=== PATIENT | female | born 1945 | race African-American/Black ===

== ENCOUNTER 2018-04-17 01:04 | Inpatient (IN) | payer OTHER ==
[~2018-04-17] VITALS: Ht 154.9 cm; Wt 85.7 kg
[2018-04-17] VITALS (9 sets, daily range): BP systolic 124–178; BP diastolic 54–99
--- NOTE | ~2018-04-17 | HC ---
[facility] [place] [address] CONSULTATION Name: ADI PALACIOS Room #: 362-P ADM IN M.R.#: [id number] Admission: 04/17/18 Attend Phys: Aishwarya Tripathi MD Discharge: Date of : 47 Report #: [id number] THIS REPORT FOR: //name// CC: Leonardo Valenzuela DATE OF SERVICE: 04/17/2018 REASON FOR CONSULTATION: I was asked to evaluate concerning infected lower extremity wound. HISTORY OF PRESENT ILLNESS: The patient is a 72-year-old with a progressive right pretibial leg wound infection. She noticed about 3-4 weeks ago onset of a small left pretibial wound. She has underlying venous stasis disease. She was in the hospital at [facility] after she fell and fractured her vertebra. Further details of this are not available. There was no surgical intervention. The wound to her left leg has progressively increased in size over the last several weeks. She was seen in the outpatient clinic for wound care and was hospitalized yesterday because of such progression. She has been on oral antibiotic therapy. Most recently cephalexin. She has underlying rheumatoid arthritis and she was treated with methotrexate and prednisone. She does not think she has had a previous lower extremity ultrasound. She is a nonsmoker. No prior issues with wounds to the left leg. No specific injury. Pain has increased, now on narcotics for pain. She has limited mobility due to her back and rheumatoid arthritis. She does have a history of peripheral neuropathy. REVIEW OF SYSTEMS: Denies any other skin lesions. No adenopathy. No headache or neurologic issues noted. Denies any psychiatric complaints. No history of diabetes or thyroid disease. No cardiopulmonary complaints. She does have a history of hypertension. Denies any GI or complaints. No vaginal discharge. Her joints, otherwise had been relatively stable for her. The 10-point review of systems is negative other than as described above. ALLERGIES: None. MEDICATIONS: As noted on her MAR, now on 10 mg of prednisone a day and methotrexate 20 mg a week. Vancomycin and Zosyn current antibiotic. PAST MEDICAL HISTORY: Rheumatoid arthritis, hypertension, hyperlipidemia, cholecystectomy, tonsillectomy. FAMILY HISTORY: Noncontributory. SOCIAL HISTORY: Nonsmoker, no significant alcohol intake. Resides with her family. [address] [address] CONSULTATION Name: ADI PALACIOS Room #: 362-P [facility] IN M.R.#: [id number] Admission: 04/17/18 Attend Phys: Aishwarya Tripathi MD Discharge: Date of : 47 Report #: [id number] PHYSICAL EXAMINATION: GENERAL: Well-developed, obese woman in no acute distress. EYES: No conjunctival injection or scleral icterus. MOUTH: Without lesion or mucositis. NECK: Supple, thick. No mass or thyromegaly. No palpable peripheral adenopathy. LUNGS: Clear, without adventitial sounds. HEART: Regular, without murmur, gallop or rub. ABDOMEN: Obese, soft, nontender, no hepatosplenomegaly or mass. EXTREMITIES: Left lower extremity with fairly large pretibial wound lower lateral area with some fibrinous debris at the base and serous drainage. Surrounding erythema and 2+ edema. Area of pretibial and surrounding tissues very tender to the touch. Pulses diminished in the feet bilaterally. 2+ pulse in the femoral and 1+ in the popliteal. Cranial nerves intact. Sensation diminished in the toes to the touch. SKIN: Without any other lesions or rash. Mood normal. LABORATORY STUDIES: Sodium 139, potassium 4.9, bicarbonate 27, creatinine 1.3, alkaline phosphatase 123. Liver function tests normal. Hemoglobin 11, platelet count 212,000, white count 12.7. Lactate 1.6. Blood cultures are pending. Outside biopsy and cultures are pending. IMPRESSION: 1. Chronic progressive wound, left lower extremity in a woman with underlying rheumatoid arthritis, immunosuppressed on prednisone and methotrexate. Suspecting vascular, ischemic wound. Other possibility would be autoimmune vasculitic wound. Secondary infection likely scenario. 2. Obesity. 3. Hypertension. 4. Venous stasis disease. RECOMMENDATIONS: We will continue IV antibiotic therapy pending culture results. Check arterial studies. Await biopsy and culture results performed in the outpatient clinic. Mild compression and elevation to continue. Also, check laboratory studies including sedimentation rate. <ELECTRONICALLY SIGNED> By: Catracho Connelly MD 04/18/18 1339 1313 1756 Catracho Connelly MD /nt
--- NOTE | ~2018-04-17 | EEG ---
[facility] [place] [address] ELECTROENCEPHALOGRAM Name: ADI PALACIOS Room #: 349-I [facility] IN M.R.#: [id number] Admission: 04/17/18 Attend Phys: Aishwarya Tripathi MD Discharge: Date of : 46 Report #: [id number] THIS REPORT FOR: //name// CC: Leonardo Tripathi DATE OF SERVICE: 04/26/2018 This patient is being evaluated for altered mental status. EEG was done by placing the electrodes by standard 10-20 system of electrode placement. Both referential and sequential montages were used for recording. Background activity is about 9 Hz and 30 microvolts. The patient went to sleep. That is associated with bilaterally symmetrical sleep spindle and vertex sharp waves. Photic stimulation was unremarkable. Throughout the record, no active epileptiform activity was noticed. IMPRESSION: EEG is intermixed with some theta range slowing. That is a nonspecific abnormality, which can occur with encephalopathy, effect of psychotropic medication, dementia, etc. Clinical correlation is recommended. <ELECTRONICALLY SIGNED> By: Florencio Arvizu MD 05/02/18 0948 1631 1800 Florencio Arvizu MD /nt
--- NOTE | ~2018-04-17 | 2DMMODE ---
[facility] [address] [address] 2 D/M-MODE ECHOCARDIOGRAM Name: ADI PALACIOS Room #: 361-P ADM IN .R.#: [id number] Admission: 04/17/18 Attend Phys: Aishwarya Tripathi MD Discharge: Date of : 47 Date of Service: 04/25/18 1554 Report #: [id number] THIS REPORT FOR: //name// APPROVED REPORT Study performed: 04/25/2018 14:51:49 EXAM: Comprehensive 2D, Doppler, and color-flow Echocardiogram Patient Location: Bedside Room #: 361 Status: routine BSA: 1.81 HR: 93 bpm BP: 187/115 mmHg Rhythm: NSR Other Information Study Quality: Adequate Technically limited study due to body habitus, inability to position patient. Indications History of leg edema, CHF, SOB. 2D Dimensions RVDd: 28.68 mm IVSd: 12.00 (7-11mm) LVOT Diam: 19.40 (18-24mm) LVDd: 38.00 mm PWd: 12.00 (7-11mm) Ascending Ao: 29.47 (22-36mm) LVDs: 26.38 (25-40mm) Aortic Root: 33.22 mm Volumes Left Atrial Volume (Systole) Single Plane 4CH: 42.86 mL Single Plane 2CH: 47.92 mL LA ESV Index: 27.00 mL/m2 Aortic Valve AoV Peak José Miguel.: 1.57 m/s AO Peak Gr.: 9.86 mmHg LVOT Max P.19 mmHg LVOT Max V: 1.34 m/s NARENDRA Vmax: 2.52 cm2 Mitral Valve E/A Ratio: 0.6 [facility] [place] [address] 2 D/M-MODE ECHOCARDIOGRAM Name: ADI PALACIOS Room #: 361-P [facility] IN ..#: [id number] Admission: 04/17/18 Attend Phys: Aishwarya Tripathi MD Discharge: Date of : 47 Date of Service: 04/25/18 1554 Report #: [id number] MV Decel. Time: 233.98 ms MV E Max José Miguel.: 0.67 m/s MV A José Miguel.: 1.11 m/s MV PHT: 67.86 ms IVRT: 69.20 ms Pulmonary Valve PV Peak José Miguel.: 1.50 m/s PV Peak Gr.: 8.96 mmHg Tricuspid Valve TR Peak José Miguel.: 3.08 m/s RAP Estimate: 5.00 mmHg TR Peak Gr.: 38.02 mmHg PA Pressure: 43.00 mmHg Left Ventricle The left ventricle is normal size. There is normal LV segmental wall motion. Mild concentric left ventricular hypertrophy. Left ventricular systolic function is normal. LVEF is 65-70%. Mild diastolic dysfunction is present (impaired relaxation pattern). Right Ventricle The right ventricle is normal size. The right ventricular systolic function is normal. Atria The left atrium size is normal. The right atrium size is normal. Aortic Valve The aortic valve is normal in structure. No aortic regurgitation is present. There is no aortic valvular stenosis. Mitral Valve The mitral valve is normal in structure. No mitral regurgitation. Tricuspid Valve The tricuspid valve is normal in structure. Mild tricuspid regurgitation. Estimated PAP is 40-45mmHg. Pulmonic Valve Pulmonic valve is not well visualized. There is no pulmonic valvular stenosis. Trace pulmonic regurgitation. [facility] [address] [place] [address] 2 D/M-MODE ECHOCARDIOGRAM Name: ADI PALACIOS Room #: 361-P ADM IN .R.#: [id number] Admission: 04/17/18 Attend Phys: Aishwarya Tripathi MD Discharge: Date of : 47 Date of Service: 04/25/18 1554 Report #: [id number] The aortic root is normal in size. The ascending aorta is normal in size. IVC is normal in size and collapses >50% with inspiration. Pericardium There is no pericardial effusion. <Conclusion> LVEF is 65-70%. There is normal LV segmental wall motion. LVEF is 65-70%. Mild diastolic dysfunction The aortic valve is normal in structure. No aortic regurgitation or stenosis The mitral valve is normal in structure. No mitral regurgitation. Mild tricuspid regurgitation. Estimated pulmonary artery pressure of 40-45mmHg. There is no pericardial effusion. <ELECTRONICALLY SIGNED> By: Yasir Petit MD, FACC 04/25/18 1554 53 155 Yasir Petit MD, FACC /INF
--- NOTE | ~2018-04-17 | HC ---
[facility] [place] [address] CONSULTATION Name: ADI PALACIOS Room #: 349-I ADM IN ..#: [id number] Admission: 04/17/18 Attend Phys: Aishwarya Tripathi MD Discharge: Date of : 46 Report #: [id number] THIS REPORT FOR: //name// CC: Leonardo Tripathi DATE OF SERVICE: 04/27/2018 HISTORY OF PRESENT ILLNESS: This is a 72-year-old -German female who has been dealing with the left lower extremity chronic wound. There is a question as to whether this was caused by a spider bite. She developed sepsis, underwent excisional debridement of the left anterior wound on 04/22/2018. She has been on IV antibiotics. She is being monitored regarding acute renal insufficiency. She has a prior history of rheumatoid arthritis on prednisone and methotrexate. She had an episode of facial droop thought to be either due to encephalopathy or TIA. Neurology saw her. MRI did not show any evidence of a stroke. She is to have an EEG. We are seeing her in rehabilitation medicine consultation. PAST MEDICAL HISTORY: Includes rheumatoid arthritis as noted above. She has history of hypertension, acute renal insufficiency and peripheral neuropathy. HABITS: Include tobacco with cigarette usage. She smoked for 40 years, 2 packs per day, quit in 2001. No history of alcohol abuse. SOCIAL HISTORY: She lives in a house with her daughter and her sister. She used a cane premorbidly. She notes her daughter works outside the home. She was receiving some home healthcare previous to admission. REVIEW OF SYSTEMS: Did not offer any current complaints of chest pain, shortness of breath and abdominal discomfort. PHYSICAL EXAMINATION: GENERAL: This is a 72-year-old overweight, pleasant, -German female in no obvious distress. She is currently on nasal prong O2, 2 liters. HEENT: Facies appeared symmetric. EXTREMITIES: Functional range of motion of both upper extremities with strength grade 4-/5. DTRs are trace to 1. Lower extremities, no focal calf swelling. Left anterior leg is dressed. She can dorsiflex of left ankle. Strength is a grade 4-/5, right lower extremity, no focal calf swelling, functional range of motion with strength grade 4-/5. DTRs are trace to 1. Sit to stand was min assist. Gait was 10 feet min assist with the rollator walker. ASSESSMENT: This is a 72-year-old female with the following problem list: 1. Right lower [place] [address] CONSULTATION Name: ADI PALACIOS Room #: 349-I [facility] IN [facility]#: [id number] Admission: 04/17/18 Attend Phys: Aishwarya Tripathi MD Discharge: Date of : 46 Report #: [id number] 2. Sepsis. 3. Acute renal insufficiency. 4. Rheumatoid arthritis. 5. Hypertension. 6. Episode of transient ischemic attack versus encephalopathy. Appears to be improved/back to her prior baseline. PLAN: The patient would like to return directly home with home health care. We will need to see how she does as far as her functional abilities in therapies on basic transfers and mobility and ADLs. Although, she does live with her daughter. Daughter does work and the patient will need to be able to take care of some of her basic needs herself. We will be glad to follow along with you regarding her rehab therapy needs. <ELECTRONICALLY SIGNED> By: River Almanza MD 05/06/18 1220 0920 1008 River Almanza MD /nt
--- NOTE | ~2018-04-17 | EKG ---
[address] [address] ELECTROCARDIOGRAM REPORT Name: ADI PALACIOS Room #: 349-I ADM IN M.R.#: [id number] Admission: 04/17/18 Attend Phys: Aishwarya Tripathi MD Discharge: Date of : 47 Report #: [id number] THIS REPORT FOR: //name// [facility] Test Date: 2018-04-26 Test Time: 08:55:55 Pat Name: ADI PALACIOS Department: Room: 349 I Gender: F Patient Care Technician: ENRIKE : 1945 Requested By: Germain Lopes Order Number: [id number] MD: Yasir Petit Measurements Intervals [place] Rate: 102 P: 48 PA: 119 QRS: 33 QRSD: 81 T: 72 QT: 355 QTc: 463 Interpretive Statements Sinus tachycardia Atrial premature complexes Inferior infarct, old Compared to ECG 06/09/2015 16:14:13 Atrial premature complex(es) now present Electronically Signed On 04-26-2018 16:35:18 CDT by Yasir Petit [email or web address] <ELECTRONICALLY SIGNED> By: Yasir Petit MD, [facility] 04/26/18 1635 4 Yasir Petit MD, [facility] /EPI
--- NOTE | ~2018-04-17 | O ---
[facility] [place] [address] OPERATIVE REPORT Name: ADI PALACIOS Room #: 349-I ADM IN .R.#: [id number] Admission: 04/17/18 Attend Phys: Aishwarya Tripathi MD Discharge: Date of : 46 Report #: [id number] THIS REPORT FOR: //name// CC: Leonardo Tripathi DATE OF SERVICE: 04/22/2018 SURGEON: Seth Muñiz MD [place] ATTENDANT: None. PREOPERATIVE DIAGNOSES: 1. 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 2. Acute kidney injury. 3. Hypertension. 4. Rheumatoid arthritis. POSTOPERATIVE DIAGNOSES: 1. 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 2. Acute kidney injury. 3. Hypertension. 4. Rheumatoid arthritis. PROCEDURE: 1. Excisional debridement of chronic left anterior lateral lower extremity wound including skin and subcutaneous tissue (12 cm2 starting area; 27.3 cm2 ending area) including biopsy of normal adjacent tissue. 2. Misonix ultrasound debridement of left anterolateral lower extremity wound of 27.3 cm2. ANESTHESIA: General endotracheal anesthesia and local anesthetic. ESTIMATED BLOOD LOSS: 10 mL. SPECIMEN: Left anterior lateral lower extremity skin and subcutaneous tissue as well as surrounding normal tissue. COMPLICATIONS: None appreciated. INDICATION FOR PROCEDURE: This is a 72-year-old female patient being followed in the Wound Care Clinic for a chronic left lower extremity ulceration. She has developed increasing pain and drainage, which prompted her admission to the hospital. Her ulcer does not appear to be from pressure necrosis, but rather from a possible vascular issue. She does have underlying rheumatoid arthritis and is being treated with methotrexate and prednisone. She denies trauma to the [facility] [address] [place] [address] OPERATIVE REPORT Name: ADI PALACIOS Room #: 349-I ADM IN .R.#: [id number] Admission: 04/17/18 Attend Phys: Aishwarya Tripathi MD Discharge: Date of : 46 Report #: [id number]. She presents now for debridement as well as biopsy of relatively normal surrounding tissue. OPERATIVE FINDINGS: The wound was 4 x 3 cm prior to debridement and 6.5 x 4.2 cm post-debridement for a total area of 27.3 cm2. The underlying tissue had adequate blood supply with a good oozing of tissue after the incision. No other significant pathology was seen. DESCRIPTION OF PROCEDURE IN DETAIL: After the risks, benefits and expectations of the operation were discussed with the patient and her family, informed consent was obtained. The patient was identified in the preoperative holding area. She has been receiving scheduled antibiotics. She was taken to the operating room and she was placed in the supine position. SCDs were placed on the patient's right lower extremity. The left lower extremity was prepped and draped in the standard sterile fashion after sedating and intubating the patient. After prepping and draping the left lower extremity, a time-out was performed to identify the correct patient and procedure. A sharp #10 blade scalpel was used to excise the necrotic tissue overlying the ulcer and including the ulcer bed. Debridement was carried down to healthy bleeding tissue. Bleeding points were made hemostatic with electrocautery. Cultures were taken to be sent for aerobes, anaerobes and fungus. An additional area of tissue was taken from the anterior lateral aspect of the wound, approximately quarter shaped. A sharp #10 blade scalpel was used to make an incision through the skin and subcutaneous tissue. Electrocautery was used to dissect through subcutaneous tissue and lift the tissue off of the overlying fascia. Bleeding points were made hemostatic with electrocautery. YumZingonix ultrasonic debridement device was then used to cause cavitation of the cells and swelling and bursting of any bacterial cell rogers present. This would help to decrease the bacterial load. Bleeding points were again made hemostatic with electrocautery. The wound was then packed with wet-to-dry normal saline dressings. The wound was dressed with 4 x 4s, an ABD pad and tape. The patient tolerated the procedure well. She was awakened, extubated, and taken to the recovery room in stable condition with no apparent intraoperative complications. <ELECTRONICALLY SIGNED> By: Seth Muñiz MD, FACS 04/28/18 0818 1416 1518 Seth Muñiz MD, FACS /nt
--- NOTE | ~2018-04-17 | HC ---
[facility] [place] [address] CONSULTATION Name: ADI PALACIOS Room #: 362-P ADM IN M.R.#: [id number] Admission: 04/17/18 Attend Phys: Aishwarya Tripathi MD Discharge: Date of : 46 Report #: [id number] THIS REPORT FOR: //name// CC: Leonardo Tripathi DATE OF SERVICE: 04/18/2018 CHIEF COMPLAINT: Ulceration of the left leg and IV infiltration site, left antecubital fossa. HISTORY OF PRESENT ILLNESS: This is a 72-year-old female patient who has been seen once in the wound clinic by my partner, Dr. Wakefield a couple of weeks ago for an ulceration on her left leg. She apparently developed increasing pain and some drainage and was admitted to the hospital. She has what appears to be a venous type ulceration and it has been slow to respond. She has underlying rheumatoid arthritis and being treated with methotrexate and prednisone. She denies any specific trauma to the leg and it is uncertain as to how it developed. MEDICATIONS: Reviewed on her MAR, include vancomycin, Zosyn, methotrexate and prednisone. PAST MEDICAL HISTORY: Positive for hypertension, hyperlipidemia, rheumatoid arthritis, cholecystectomy and tonsillectomy. FAMILY HISTORY: Noncontributory. SOCIAL HISTORY: The patient is a nonsmoker with no significant alcohol intake. ALLERGIES: None. REVIEW OF SYSTEMS: CONSTITUTIONAL: The patient denies fever, chills or weight loss. NEUROLOGICAL: The patient denies focal weakness. ENT: The patient denies earache, nasal drainage or sore throat. CARDIOVASCULAR: The patient chest pain, palpitations or diaphoresis. PULMONARY: The patient denies cough or shortness of breath. GASTROINTESTINAL: The patient denies nausea, vomiting, diarrhea, or abdominal pain. ORTHOPEDIC: The patient complains of pain, swelling and blistering to her left antecubital fossa as well as ulceration and drainage to her left leg. Other 14-point review of systems is otherwise negative. PHYSICAL EXAMINATION: VITAL SIGNS: At this time includes pulse rate 110, respiratory rate of 18, [facility] [address] [place] [address] CONSULTATION Name: ADI PALACIOS Room #: 362-P ADM IN M.R.#: [id number] Admission: 04/17/18 Attend Phys: Aishwarya Tripathi MD Discharge: Date of : 46 Report #: [id number] blood pressure 168/68, temperature 98.7. GENERAL: This is a chronically ill-appearing female patient who appears to be in no distress. HEENT: Head normocephalic. Nose and throat clear. NECK: Supple. LUNGS: Clear. HEART: Regular. ABDOMEN: Soft, nontender. EXTREMITIES: Demonstrate diminished, but palpable distal pulses. She has 1-2+ edema of her lower extremities. There is a circular ulceration on the lateral aspect of the left leg. It is mostly covered with yellow fibrinous material with a little bit of granulation tissue present. Left antecubital fossa demonstrates multiple bullae that are superficial. These are easily ruptured and the areas that are open do appear to be clean without evidence of infection. There is some surrounding edema to the area and it is mildly tender. CLINICAL IMPRESSION: 1. Ulceration of the left lower extremity, likely on the basis of venous insufficiency. One would also consider the possibility of pyoderma gangrenosum with her underlying rheumatological disorder. 2. Intravenous infiltration site with multiple superficial bullae of the left antecubital fossa. 3. Rheumatoid arthritis. 4. Hypertension. 5. Obesity. RECOMMENDATIONS: At this point in time, we recommend continued intravenous antibiotic therapy, pending cultures. Arterial Dopplers have been obtained, which demonstrate no significant inflow disease. I think she could probably handle some compression. We may want to consider some debridement, although realize that should this be vasculitic and/or related to pyoderma gangrenosum that pathergy would be a consideration. We will start with topical Medihoney to the affected area on the left leg. We will recommend nonadherent dressing to the left antecubital fossa. I think we will try some gentle compression, elevation of the leg for edema control. I appreciate being asked to see her in consultation. <ELECTRONICALLY SIGNED> By: Jordan Stark MD 04/19/18 1008 13 2356 Jordan Stark MD /nt
--- NOTE | ~2018-04-17 | HC ---
[facility] [place] [address] CONSULTATION Name: ADI PALACIOS Room #: 349-I ADM IN .R.#: [id number] Admission: 04/17/18 Attend Phys: Aishwarya Tripathi MD Discharge: Date of : 47 Report #: [id number] THIS REPORT FOR: //name// CC: Leonardo Tripathi DATE OF SERVICE: 04/26/2018 HISTORY OF PRESENT ILLNESS: This is a 72-year-old female patient who was evaluated by me for altered mental status. This patient is a poor historian. Her sister is there with her, but she is also a poor historian. I reviewed the records on this patient. It looks like that at one time the right facial droop was noticed. The patient indicated that she was confused yesterday, but she is doing better now. The symptoms came spontaneously and then she became better. She has no headache associated with this. REVIEW OF SYSTEMS: Positive for multiple things. Those things include left lower wound infection and she indicates that she is still having pain there. It was like that when she came in. She had seen wound care doctor. She takes multiple medications. She is on the medication for sepsis. She has wound cellulitis. She has renal problems. She has rheumatoid arthritis. She has history of hypertension. A 14-point review of system was carried out and that was positive for above-described problems. She indicated that she has some trouble with her eyes. She indicated some complicated history in that regard. That problem has been chronic. She denies any ENT complaints. She does not have any significant breathing difficulty or any chest symptoms. She does have rheumatoid arthritis in the baseline. She has renal problems in the baseline. Her GFR is 41. She does have sepsis. She has cellulitis. She denies any new hematological, psychiatric, throat, allergic symptoms. PAST MEDICAL HISTORY: Positive for rheumatoid arthritis. FAMILY HISTORY: Negative for early age stroke. SOCIAL HISTORY: She has family. I talked to them, but the history is poor in this patient. She denies the use of alcohol. PHYSICAL EXAMINATION: This patient's examination indicates she is alert and responsive. She is slightly sleepy. She wakes up easily. She is oriented. She believes her fund of knowledge and memory is at her baseline. Cranial nerve examination 2-12 indicates that it is difficult to tell about extraocular movements. I do not know what is her baseline and what is superimposed on that. Neuromuscular examination as checked for sensory, motor reflex and tone is at her baseline allowing for cellulitis. No meningeal sign. I could not look at [facility] [address] [place] [address] CONSULTATION Name: ADI PALACIOS Room #: 349-I ADM IN .R.#: [id number] Admission: 04/17/18 Attend Phys: Aishwarya Tripathi MD Discharge: Date of : 47 Report #: [id number] the fundus very well. There is no cerebellar signs in upper extremities. She is moderately built individual. She is not having any dysmorphic features of eyes, ears and face. Her vision and hearing looks adequate. Pulses are difficult to feel. She does have some swelling because of her cellulitis. No jaundice. Cardiac examination is unremarkable. No respiratory difficulty or rhonchi on either side. Blood pressure is 150/72, respiration is 20, pulse is 82, temperature is 97.1. LABORATORY DATA: Indicates white count of 9.9. GFR is 41. She did have an MRI of the brain and MRA of the head. I reviewed that and it appears mostly unremarkable. She is on aspirin and she is on statin. IMPRESSION: The patient's symptoms were secondary to either encephalopathy or transient ischemic attack. She is better. I will check an EEG. If EEG is unremarkable or shows only encephalopathy, I do not believe much needs to be done. Even if it was TIA, she is already on aspirin and statin and nothing much needs to be done in this regard. She does need to follow up with her finish mender after she recuperates from present situation. RECOMMENDATION: I discussed all of it with the patient and the family. They understand that. They want to follow the above approach. I will look at the EEG and follow up tomorrow. We will do further workup in case she continues to have symptoms. If she does not have any further symptoms, I think we can just observe her. Thank you very much for this referral and if you have any question, please feel free to contact me. <ELECTRONICALLY SIGNED> By: Florenico Arvizu MD 05/02/18 0947 1504 20 Florencio Arvizu MD /nt
--- NOTE | ~2018-04-17 | PATH ---
[facility] [address] [address] PATHOLOGY RPT PROCEDURE Name: RUDY PALACIOS Room #: 349-I ADM IN M.R.#: [id number] Admission: 04/17/18 Date of : 47 Discharge: Report #: [id number] Path Case #: [id number] [facility] Accession Number: [id number] . 01 Material submitted: . PART A: LEFT LOWER LEG TISSUE PART B: LEFT LOWER LEG MARGINAL TISSUE . 01 Clinician provided ICD-10: L03.116 A41.9 . 01 Clinical history: . Ulcer left lower leg . 02 Diagnosis: A. Left lower leg tissue, debridement: - Fragments of gangrenous necrosis, dystrophic calcification and fibrinoid degeneration, compatible with debridement tissue. . B. Skin and subcutaneous tissue, left lower leg marginal tissue, debridement and irrigation: - Moderate to marked acute inflammation associated with fibrinoid degeneration, compatible with debridement tissue. (IUV:pit 04/25/2018) QTP/04/25/2018 . 02 Electronically signed: . Belinda Fischer MD, Pathologist NPI- [id number] . 01 Gross description: . A.The specimen is received in formalin, labeled "Rudy Palacois, left lower leg tissue", are several fragments of hemorrhagic/necrotic skin and underlying soft tissue measuring 2.6 x 1.7 x 0.6 cm in aggregate. The specimen is entirely submitted in A1. . B.The specimen is received in formalin, labeled "Rudy Palacios, left lower leg marginal tissue", is an irregular fragment of gardiner brown wrinkled skin measuring 1.9 x 1.7 excised to a depth of 0.5 cm. The specimen is inked black, serially sectioned and entirely submitted in B1-B2. (SWS; 04/22/2018) [facility] . 02 Pathologist provided ICD-10: I96, L08.9 . [address] [place] [address] PATHOLOGY RPT PROCEDURE Name: RUDY PALACIOS Room #: 349-I ADM IN M.R.#: [id number] Admission: 04/17/18 Date of : 47 Discharge: Report #: [id number] Path Case #: [id number] [facility] . [id number], [id number] Specimen Comment: A courtesy copy of this report has been sent to Specimen Comment: [phone], , . Specimen Comment: Report sent to ,DR HILTON / DR MCCARTY Performed at: [address] [facility], [place], [place] [id number] MD Laron Knapp MD Phone: [phone] Performed at: [address] [facility], [place], [place] [id number] MD Belinda Fischer MD Phone: [phone]
--- NOTE | ~2018-04-17 | EKG ---
[address] [address] ELECTROCARDIOGRAM REPORT Name: SUZANNEADI Room #: 349-I ADM IN M.R.#: [id number] Admission: 04/17/18 Attend Phys: Aishwarya Tripathi MD Discharge: Date of : 47 Report #: [id number] THIS REPORT FOR: //name// [facility] Test Date: 2018-04-25 Test Time: 21:23:34 Pat Name: ADI PALACIOS Department: Room: 349 Gender: F Hands Assembler: Tarsha MELVIN : 1945 Requested By: Albert Pressley Order Number: [id number] MD: Patrice Steele Measurements Intervals [place] Rate: 96 P: 58 [place]: 128 QRS: 50 QRSD: 77 T: 97 QT: 354 QTc: 448 Interpretive Statements Sinus rhythm Nonspecific T abnormalities, lateral leads Compared to ECG 06/09/2015 16:14:13 T-wave abnormality now present Myocardial infarct finding no longer present ST (T wave) deviation no longer present Electronically Signed On 04-26-2018 9:54:39 CDT by Patrice Steele [email or web address] <ELECTRONICALLY SIGNED> By: Patrice Steele MD 04/26/18 0954 22 22 Patrice Steele MD /EPI
[~2018-04-17 01:04] MED LIST: NORCO 5-325 TA1 EACH PO
[2018-04-17] MEDS ORDERED: LOPRESSOR25 PO (02:50)
[2018-04-17] MEDS ORDERED: ASPIR 8181 MG PO (02:50)
[2018-04-17 02:52] LABS: ABSOLUTE NEUTROPHILS 9.9 thou/uL (1.4-8.2); BASOPHILS 0.9 % (0.0-2.0); EOSINOPHILS 0.4 % (0.0-3.0); HEMATOCRIT 33.4 % (37.0-47.0); LYMPHOCYTES 12.8 % (24.0-44.0); MCH 31.2 pg (26.0-34.0); MCHC 32.8 g/dL (28.0-37.0); MCV 95.1 fL (80.0-100.0); PLATELET COUNT 212 thou/uL (150-400); POLYS 77.9 % (36.0-66.0); RBC 3.52 mil/uL (4.20-5.00); RDW 17.6 % (10.5-14.5); WBC 12.7 thou/uL (4.0-11.0)
[2018-04-17 03:00] LABS: CALCIUM 9.5 mg/dL (8.5-10.1); CREATININE 1.3 mg/dL (0.6-1.0)
[2018-04-17 03:06] LABS: ALBUMIN 2.8 g/dL (3.4-5.0); TOTAL BILIRUBIN 0.5 mg/dL (<0.1-1.0); TOTAL PROTEIN 7.1 g/dL (6.4-8.2)
[2018-04-17 03:07] LABS: POTASSIUM 4.9 mmol/L (3.5-5.1)
[2018-04-17] MEDS ORDERED: METHOTREXATE 22.5 MG PO (03:21)
[2018-04-17] MEDS ORDERED: PREDNISONE 10 M10 MG PO (03:21)
[2018-04-17] MEDS ORDERED: LASIX 20 MG TAB20 MG PO (03:22)
[2018-04-17] MEDS ORDERED: NORVASC5 MG PO (03:22)
[2018-04-17] MEDS ORDERED: ALLOPURINOL 10100 M1 PO (03:23)
[2018-04-17] MEDS ORDERED: OYSCO-500500 MG PO (03:23)
[2018-04-17] MEDS ORDERED: LISINOPRIL5 MG PO (03:24)
[2018-04-17] MEDS ORDERED: SENNA8.6 MG PO (03:25)
[2018-04-17] MEDS ORDERED: VITAMIN D3400 UNIT PO (03:25)
[2018-04-17] MEDS ORDERED: PERCOCET PO (03:26)
[2018-04-18 00:29] LABS: URINE BILIRUBIN NEGATIVE (Negative); URINE BLOOD NEGATIVE (Negative); URINE CLARITY CLEAR; URINE COLOR YELLOW; URINE GLUCOSE-RANDOM* 2+ (Negative); URINE KETONES NEGATIVE (Negative); URINE LEUKOCYTES-REFLEX NEGATIVE (Negative); URINE NITRITE-REFLEX NEGATIVE (Negative); URINE PROTEIN (DIPSTICK) NEGATIVE (Negative); URINE UROBILINOGEN 0.2 E.U./dl (0.2-1.0)
[2018-04-18 03:33] VITALS: BP 158/84
[2018-04-18 05:44] LABS: BASOPHILS 0.3 % (0.0-2.0); HEMATOCRIT 28.6 % (37.0-47.0); HEMOGLOBIN 9.5 gm/dL (12.0-15.0); LYMPHOCYTES 5.7 % (24.0-44.0); MCH 31.7 pg (26.0-34.0); MCHC 33.3 g/dL (28.0-37.0); MCV 95.4 fL (80.0-100.0); MONOCYTES 7.8 % (1.0-8.0); PLATELET COUNT 173 thou/uL (150-400); POLYS 85.2 % (36.0-66.0); RDW 17.7 % (10.5-14.5); WBC 12.9 thou/uL (4.0-11.0)
[2018-04-18 05:54] LABS: CALCIUM 8.7 mg/dL (8.5-10.1); CREATININE 1.2 mg/dL (0.6-1.0); POTASSIUM 3.6 mmol/L (3.5-5.1)
[2018-04-18 07:47] VITALS: BP 152/79
[2018-04-18] MEDS ORDERED: ATORVASTATIN CA40 MG PO (10:45)
[2018-04-18 11:24] VITALS: BP 153/89
[2018-04-18 16:15] VITALS: BP 163/83
[2018-04-18 19:32] VITALS: BP 168/68
[2018-04-19 03:45] VITALS: BP 148/82
[2018-04-19 08:09] VITALS: BP 146/77
[2018-04-19 15:42] VITALS: BP 143/70
[2018-04-19 20:10] VITALS: BP 149/90
[2018-04-20 04:30] VITALS: BP 146/66
[2018-04-20 06:09] LABS: CALCIUM 9.9 mg/dL (8.5-10.1); CREATININE 1.3 mg/dL (0.6-1.0); MAGNESIUM 1.9 mg/dL (1.8-2.4); POTASSIUM 3.4 mmol/L (3.5-5.1)
[2018-04-20 06:11] LABS: HEMATOCRIT 28.7 % (37.0-47.0); HEMOGLOBIN 9.6 gm/dL (12.0-15.0); MCH 31.4 pg (26.0-34.0); MCHC 33.4 g/dL (28.0-37.0); MCV 94.2 fL (80.0-100.0); PLATELET COUNT 180 thou/uL (150-400); RBC 3.05 mil/uL (4.20-5.00); RDW 17.7 % (10.5-14.5); WBC 11.7 thou/uL (4.0-11.0)
[2018-04-20 07:39] VITALS: BP 143/67
[2018-04-20 08:20] LABS: ABSOLUTE NEUTROPHILS 9.8 thou/uL (1.4-8.2); ANISOCYTOSIS 1+
[2018-04-20 11:36] VITALS: BP 121/55
[2018-04-20] MEDS ORDERED: NORCO 5-325 TA1 EACH PO (12:30)
[2018-04-20] MEDS ORDERED: NEURONTIN 300300 M1 PO (12:32)
[2018-04-20 16:51] VITALS: BP 140/79
[2018-04-20 19:30] VITALS: BP 146/87
[2018-04-21 04:45] VITALS: BP 152/71
[2018-04-21 06:10] LABS: HEMATOCRIT 28.6 % (37.0-47.0); HEMOGLOBIN 9.7 gm/dL (12.0-15.0); MCH 32.4 pg (26.0-34.0); MCHC 34.1 g/dL (28.0-37.0); PLATELET COUNT 188 thou/uL (150-400); RBC 3.01 mil/uL (4.20-5.00); RDW 17.5 % (10.5-14.5); WBC 9.7 thou/uL (4.0-11.0)
[2018-04-21 06:17] LABS: CALCIUM 9.4 mg/dL (8.5-10.1); CREATININE 1.3 mg/dL (0.6-1.0)
[2018-04-21 06:49] LABS: ABSOLUTE NEUTROPHILS 7.4 thou/uL (1.4-8.2); POLYCHROMASIA 1+
[2018-04-21 06:50] LABS: OVALOCYTES 1+
[2018-04-21 07:37] VITALS: BP 146/72
[2018-04-21 12:11] VITALS: BP 126/69
[2018-04-21 19:53] VITALS: BP 168/80
[2018-04-22 03:45] VITALS: BP 153/89
[2018-04-22 06:37] LABS: HEMATOCRIT 28.7 % (37.0-47.0); HEMOGLOBIN 9.4 gm/dL (12.0-15.0); MCH 31.6 pg (26.0-34.0); MCHC 32.9 g/dL (28.0-37.0); MCV 96.2 fL (80.0-100.0); PLATELET COUNT 206 thou/uL (150-400); RBC 2.98 mil/uL (4.20-5.00); WBC 9.2 thou/uL (4.0-11.0)
[2018-04-22 06:50] LABS: CALCIUM 9.4 mg/dL (8.5-10.1); CREATININE 1.4 mg/dL (0.6-1.0); POTASSIUM 4.1 mmol/L (3.5-5.1)
[2018-04-22 07:50] VITALS: BP 153/64
[2018-04-22 08:17] LABS: ABSOLUTE NEUTROPHILS 7.1 thou/uL (1.4-8.2)
[2018-04-22 09:48] VITALS: BP 175/91
[2018-04-22 13:56] LABS: MAGNESIUM 1.7 mg/dL (1.8-2.4)
[2018-04-22 16:07] VITALS: BP 143/87
[2018-04-22 19:49] VITALS: BP 138/99
[2018-04-23 00:52] VITALS: BP 151/85
[2018-04-23 03:55] VITALS: BP 152/86
[2018-04-23 06:04] LABS: HEMATOCRIT 28.6 % (37.0-47.0); HEMOGLOBIN 9.5 gm/dL (12.0-15.0); MCH 31.9 pg (26.0-34.0); MCHC 33.2 g/dL (28.0-37.0); MCV 96.2 fL (80.0-100.0); PLATELET COUNT 202 thou/uL (150-400); RBC 2.97 mil/uL (4.20-5.00); RDW 17.7 % (10.5-14.5); WBC 9.5 thou/uL (4.0-11.0)
[2018-04-23 06:14] LABS: CALCIUM 9.5 mg/dL (8.5-10.1); CREATININE 1.4 mg/dL (0.6-1.0); POTASSIUM 4.3 mmol/L (3.5-5.1)
[2018-04-23 08:26] LABS: ANISOCYTOSIS 1+; METAMYELOCYTES 1 %; MYELOCYTES 1 %; POLYCHROMASIA OCCASIONAL
[2018-04-23 08:27] LABS: ABSOLUTE NEUTROPHILS 7.6 thou/uL (1.4-8.2); ATYPICAL LYMPHS 1 %
[2018-04-23 08:40] VITALS: BP 121/92
[2018-04-23 11:40] VITALS: BP 115/89
[2018-04-23 16:45] VITALS: BP 133/84; BP 139/94
[2018-04-23 19:05] VITALS: BP 128/77
[2018-04-24 04:00] VITALS: BP 155/84
[2018-04-24 08:06] VITALS: BP 156/73
[2018-04-24 15:14] VITALS: BP 161/86
[2018-04-24 19:36] VITALS: BP 156/82
[2018-04-25] VITALS (8 sets, daily range): BP systolic 141–187; BP diastolic 78–115
[2018-04-25 06:21] LABS: ABSOLUTE NEUTROPHILS 7.1 thou/uL (1.4-8.2); BASOPHILS 0.7 % (0.0-2.0); EOSINOPHILS 1.5 % (0.0-3.0); HEMATOCRIT 28.2 % (37.0-47.0); HEMOGLOBIN 9.3 gm/dL (12.0-15.0); LYMPHOCYTES 16.6 % (24.0-44.0); MCH 31.4 pg (26.0-34.0); MCHC 32.8 g/dL (28.0-37.0); MCV 95.8 fL (80.0-100.0); MONOCYTES 11.2 % (1.0-8.0); PLATELET COUNT 197 thou/uL (150-400); RBC 2.95 mil/uL (4.20-5.00); RDW 17.9 % (10.5-14.5); WBC 10.1 thou/uL (4.0-11.0)
[2018-04-25 06:31] LABS: ALBUMIN 2.3 g/dL (3.4-5.0); ANION GAP 3 mmol/L (7-16); BUN 19 mg/dL (7-18); CALCIUM 10.4 mg/dL (8.5-10.1); CHLORIDE 103 mmol/L (98-107); CO2 30 mmol/L (21-32); CREATININE 1.4 mg/dL (0.6-1.0); DIRECT BILIRUBIN < 0.1 mg/dL (<0.1-0.3); GLUCOSE 118 mg/dL (74-106); MAGNESIUM 1.5 mg/dL (1.8-2.4); SGOT 25 U/L (15-37); SGPT 36 U/L (30-65); SODIUM 136 mmol/L (136-145); TOTAL BILIRUBIN 0.3 mg/dL (<0.1-1.0); TOTAL PROTEIN 6.2 g/dL (6.4-8.2)
[2018-04-25 22:37] LABS: ABSOLUTE NEUTROPHILS 6.9 thou/uL (1.4-8.2); BASOPHILS 1.2 % (0.0-2.0); EOSINOPHILS 0.8 % (0.0-3.0); HEMATOCRIT 28.4 % (37.0-47.0); HEMOGLOBIN 9.6 gm/dL (12.0-15.0); LYMPHOCYTES 17.2 % (24.0-44.0); MCH 32.2 pg (26.0-34.0); MCHC 33.8 g/dL (28.0-37.0); MCV 95.1 fL (80.0-100.0); MONOCYTES 10.4 % (1.0-8.0); PLATELET COUNT 198 thou/uL (150-400); POLYS 70.4 % (36.0-66.0); RBC 2.99 mil/uL (4.20-5.00); RDW 18.1 % (10.5-14.5); WBC 9.7 thou/uL (4.0-11.0)
[2018-04-25 22:40] LABS: ANION GAP 3 mmol/L (7-16); BUN 24 mg/dL (7-18); CALCIUM 9.9 mg/dL (8.5-10.1); CHLORIDE 104 mmol/L (98-107); CO2 32 mmol/L (21-32); CREATININE 1.5 mg/dL (0.6-1.0); GLUCOSE 171 mg/dL (74-106); POTASSIUM 4.3 mmol/L (3.5-5.1); SODIUM 139 mmol/L (136-145)
[2018-04-25 22:49] LABS: TROPONIN-I <0.06 ng/mL (<0.06)
[2018-04-25 22:50] LABS: APTT 27.6 Seconds (24.5-32.8); INR 1.1; PROTIME 10.8 Seconds (9.3-11.4)
[2018-04-25 23:41] LABS: ANISOCYTOSIS 2+; POLYCHROMASIA 1+
[2018-04-26] VITALS (10 sets, daily range): BP systolic 109–178; BP diastolic 71–96
[2018-04-26 04:29] LABS: ABSOLUTE NEUTROPHILS 6.7 thou/uL (1.4-8.2); EOSINOPHILS 1.3 % (0.0-3.0); HEMATOCRIT 28.6 % (37.0-47.0); HEMOGLOBIN 9.5 gm/dL (12.0-15.0); LYMPHOCYTES 20.3 % (24.0-44.0); MCH 31.9 pg (26.0-34.0); MCHC 33.1 g/dL (28.0-37.0); MCV 96.3 fL (80.0-100.0); MONOCYTES 9.9 % (1.0-8.0); PLATELET COUNT 198 thou/uL (150-400); POLYS 67.5 % (36.0-66.0); RBC 2.97 mil/uL (4.20-5.00); RDW 17.5 % (10.5-14.5); WBC 9.9 thou/uL (4.0-11.0)
[2018-04-26 04:34] LABS: CREATININE 1.5 mg/dL (0.6-1.0); MAGNESIUM 1.8 mg/dL (1.8-2.4); POTASSIUM 4.1 mmol/L (3.5-5.1)
[2018-04-26 08:25] LABS: CHOLESTEROL 116 mg/dL (<200); HDL CHOLESTEROL 65 mg/dL (>40); LDL CHOLESTEROL 35 mg/dL (<100); TC:HDL 1.8 Ratio (Not establshd); TRIGLYCERIDE 83 mg/dL (<150); VLDL 17 mg/dL (<40)
[2018-04-26 08:39] LABS: FOLIC ACID 12.1 ng/mL (8.6-58.9); TSH 0.024 uIU/mL (0.358-3.740)
[2018-04-27 05:47] LABS: ABSOLUTE NEUTROPHILS 6.7 thou/uL (1.4-8.2); BASOPHILS 1.3 % (0.0-2.0); HEMATOCRIT 27.9 % (37.0-47.0); HEMOGLOBIN 9.3 gm/dL (12.0-15.0); LYMPHOCYTES 17.7 % (24.0-44.0); MCHC 33.3 g/dL (28.0-37.0); MONOCYTES 10.1 % (1.0-8.0); PLATELET COUNT 183 thou/uL (150-400); POLYS 68.9 % (36.0-66.0); RDW 17.8 % (10.5-14.5); WBC 9.7 thou/uL (4.0-11.0)
[2018-04-27 05:56] LABS: CALCIUM 9.9 mg/dL (8.5-10.1); CREATININE 1.3 mg/dL (0.6-1.0); POTASSIUM 4.1 mmol/L (3.5-5.1)
[2018-04-27 06:18] VITALS: BP 140/86
[2018-04-27 11:33] VITALS: BP 143/72
[2018-04-27 15:41] VITALS: BP 145/76
[2018-04-27 19:12] VITALS: BP 125/72
[2018-04-28 04:00] VITALS: BP 146/73
[2018-04-28 04:36] LABS: HEMATOCRIT 28.5 % (37.0-47.0); HEMOGLOBIN 9.5 gm/dL (12.0-15.0); MCH 31.7 pg (26.0-34.0); MCHC 33.1 g/dL (28.0-37.0); MCV 95.7 fL (80.0-100.0); PLATELET COUNT 190 thou/uL (150-400); RBC 2.98 mil/uL (4.20-5.00); RDW 17.9 % (10.5-14.5); WBC 11.7 thou/uL (4.0-11.0)
[2018-04-28 04:47] LABS: CALCIUM 9.7 mg/dL (8.5-10.1); CREATININE 1.3 mg/dL (0.6-1.0); POTASSIUM 4.1 mmol/L (3.5-5.1)
[2018-04-28 05:07] LABS: ABSOLUTE NEUTROPHILS 8.9 thou/uL (1.4-8.2); NUCLEATED RBCS 1 /100WBC
[2018-04-28 05:08] LABS: ANISOCYTOSIS 1+; POLYCHROMASIA SLIGHT
[2018-04-28 05:09] LABS: GLYCOHEMOGLOBIN (HGB A1C) 6.8 % (4.8-5.6)
[2018-04-28 07:01] VITALS: BP 144/69
[2018-04-28 10:30] VITALS: BP 144/69
[2018-04-28 11:30] VITALS: BP 127/63
[2018-04-28 16:30] VITALS: BP 132/54
[2018-04-28 19:30] VITALS: BP 123/65
[2018-04-29 03:20] VITALS: BP 147/78
[2018-04-29 07:19] VITALS: BP 147/82
[2018-04-29 11:20] VITALS: BP 119/64
[2018-04-29 16:21] VITALS: BP 151/76
[2018-04-29 19:05] VITALS: BP 150/82
[2018-04-30 03:30] VITALS: BP 142/82
[2018-04-30 06:12] LABS: HEMATOCRIT 29.5 % (37.0-47.0); MCH 32.6 pg (26.0-34.0); MCHC 33.9 g/dL (28.0-37.0); MCV 96.2 fL (80.0-100.0); PLATELET COUNT 202 thou/uL (150-400); RBC 3.07 mil/uL (4.20-5.00); RDW 17.9 % (10.5-14.5); WBC 24.2 thou/uL (4.0-11.0)
[2018-04-30 06:20] LABS: CALCIUM 9.8 mg/dL (8.5-10.1); CREATININE 1.5 mg/dL (0.6-1.0); MAGNESIUM 1.8 mg/dL (1.8-2.4); POTASSIUM 4.3 mmol/L (3.5-5.1)
[2018-04-30 07:37] LABS: ABSOLUTE NEUTROPHILS 20.1 thou/uL (1.4-8.2); ANISOCYTOSIS SLIGHT; ATYPICAL LYMPHS 1 %; NUCLEATED RBCS 2 /100WBC; POIKILOCYTOSIS SLIGHT
[2018-04-30 07:38] LABS: LARGE PLATELETS OCCASIONAL; POLYCHROMASIA SLIGHT
[2018-04-30 07:39] VITALS: BP 155/73
[2018-04-30 11:46] VITALS: BP 140/78
[2018-04-30 15:42] VITALS: BP 147/75
[2018-04-30 19:10] VITALS: BP 162/96
[2018-04-30 21:30] VITALS: BP 147/83
[2018-05-01 03:00] VITALS: BP 163/71
[2018-05-01 07:38] VITALS: BP 173/84
[2018-05-01 09:32] LABS: HEMATOCRIT 30.2 % (37.0-47.0); HEMOGLOBIN 9.7 gm/dL (12.0-15.0); MCH 31.3 pg (26.0-34.0); MCHC 32.2 g/dL (28.0-37.0); MCV 97.2 fL (80.0-100.0); PLATELET COUNT 254 thou/uL (150-400); RBC 3.11 mil/uL (4.20-5.00); RDW 19.1 % (10.5-14.5); WBC 27.2 thou/uL (4.0-11.0)
[2018-05-01 09:49] LABS: ALBUMIN 2.7 g/dL (3.4-5.0); CALCIUM 9.8 mg/dL (8.5-10.1); CREATININE 1.3 mg/dL (0.6-1.0); MAGNESIUM 1.8 mg/dL (1.8-2.4); POTASSIUM 3.6 mmol/L (3.5-5.1); TOTAL BILIRUBIN 0.3 mg/dL (<0.1-1.0); TOTAL PROTEIN 6.7 g/dL (6.4-8.2)
[2018-05-01 10:20] LABS: ABSOLUTE NEUTROPHILS 20.4 thou/uL (1.4-8.2); NUCLEATED RBCS 3 /100WBC
[2018-05-01 10:21] LABS: ANISOCYTOSIS 2+; POLYCHROMASIA 1+
[2018-05-01 12:10] VITALS: BP 144/76
[2018-05-01 16:46] VITALS: BP 141/81
[2018-05-01 20:07] VITALS: BP 136/73
[2018-05-02 04:48] VITALS: BP 164/76
[2018-05-02 05:20] LABS: HEMATOCRIT 31.1 % (37.0-47.0); HEMOGLOBIN 9.8 gm/dL (12.0-15.0); MCH 30.6 pg (26.0-34.0); MCHC 31.5 g/dL (28.0-37.0); PLATELET COUNT 254 thou/uL (150-400); RDW 19.5 % (10.5-14.5); WBC 25.6 thou/uL (4.0-11.0)
[2018-05-02 05:28] LABS: CALCIUM 9.5 mg/dL (8.5-10.1); CREATININE 1.3 mg/dL (0.6-1.0); POTASSIUM 4.5 mmol/L (3.5-5.1)
[2018-05-02 07:38] VITALS: BP 143/68
[2018-05-02 09:08] LABS: ABSOLUTE NEUTROPHILS 17.9 thou/uL (1.4-8.2); NUCLEATED RBCS 2 /100WBC; PLATELET ESTIMATE NORMAL; POLYCHROMASIA 2+
[2018-05-02 11:54] VITALS: BP 153/90
[2018-05-02 16:39] VITALS: BP 152/80
[2018-05-02 19:32] VITALS: BP 146/83
[2018-05-03 05:24] VITALS: BP 156/89
[2018-05-03 07:21] VITALS: BP 141/93
[2018-05-03 11:17] VITALS: BP 149/86
[2018-05-03 16:33] VITALS: BP 151/71
[2018-05-03 19:55] VITALS: BP 130/74
[2018-05-04 03:35] VITALS: BP 163/87
[2018-05-04 07:27] VITALS: BP 155/73
[2018-05-04 16:08] VITALS: BP 144/76
[2018-05-04 19:30] VITALS: BP 152/72
[2018-05-04 20:00] VITALS: BP 144/93
[2018-05-05 03:45] VITALS: BP 160/81
[2018-05-05 07:18] VITALS: BP 153/92
[2018-05-05 11:26] VITALS: BP 146/76
[2018-05-05 15:18] VITALS: BP 152/96
[2018-05-05 19:15] VITALS: BP 152/77
[2018-05-05 19:20] VITALS: BP 131/83
[2018-05-06 04:35] VITALS: BP 149/75
[2018-05-06 07:31] VITALS: BP 154/73
[2018-05-06] MEDS ORDERED: B-12500 MCG PO (09:13)
[2018-05-06] MEDS ORDERED: SSD CREAM 1% 5050 GM TOP (09:13)
[2018-05-06] MEDS ORDERED: PREDNISONE 20 M20 M1 PO (09:13)
[2018-05-06] MEDS ORDERED: METFORMIN HCL500 MG PO (09:13)
[2018-05-06] MEDS ORDERED: LANTUS100 UNIT/M SUBQ (09:13)
[2018-05-06 11:37] VITALS: BP 141/78
== END 2018-05-06 14:10 | DRG 853 ==
LOC: ER 01:04 → EROBS 02:58 → 3W 02:58 → SICU 04-25 16:31 → 3W 04-25 22:45
PROVIDERS: Emergency Medicine; Hospitalist; Internal Medicine; Nurse Practitioner Acute Care; Nurse Practitioner Family
PROC: 05HB33Z Insertion of Infusion Device into Right Basilic Vein, Percutaneous Approach (ICD-10-PCS; principal; 2018-04-21)
PROC: 0JBP0ZZ Excision of Left Lower Leg Subcutaneous Tissue and Fascia, Open Approach (ICD-10-PCS; 2018-04-22)
DX: A41.9 Sepsis, unspecified organism (principal); E43 Unspecified severe protein-calorie malnutrition; L03.115 Cellulitis of right lower limb; L97.929 Non-pressure chronic ulcer of unspecified part of left lower leg with unspecified severity; G93.40 Encephalopathy, unspecified; G45.9 Transient cerebral ischemic attack, unspecified; N17.9 Acute kidney failure, unspecified; L03.116 Cellulitis of left lower limb; L88 Pyoderma gangrenosum; M06.9 Rheumatoid arthritis, unspecified; E78.00 Pure hypercholesterolemia, unspecified; E78.5 Hyperlipidemia, unspecified; E66.9 Obesity, unspecified; I87.8 Other specified disorders of veins; M62.84 Sarcopenia; K59.00 Constipation, unspecified; I87.2 Venous insufficiency (chronic) (peripheral); E83.42 Hypomagnesemia; E53.8 Deficiency of other specified B group vitamins; E87.6 Hypokalemia; E11.42 Type 2 diabetes mellitus with diabetic polyneuropathy; N18.9 Chronic kidney disease, unspecified; I12.9 Hypertensive chronic kidney disease with stage 1 through stage 4 chronic kidney disease, or unspecified chronic kidney disease; E11.22 Type 2 diabetes mellitus with diabetic chronic kidney disease; R23.8 Other skin changes; E11.65 Type 2 diabetes mellitus with hyperglycemia; Z90.49 Acquired absence of other specified parts of digestive tract; Z68.35 Body mass index [BMI] 35.0-35.9, adult; Z87.891 Personal history of nicotine dependence; Z79.899 Other long term (current) drug therapy; Z79.52 Long term (current) use of systemic steroids; Z79.82 Long term (current) use of aspirin
CPT/HCPCS: 10779; 10879; 27000; 50010; 50101; 50386; 50403; 57119; 57120; 62110; 62900; 70005

== ENCOUNTER → 2018-08-02 | Outpatient (CLI) | payer OTHER ==
[~2018-08-02] MED LIST changes: +ALLOPURINOL 10100 M1 PO; +ASPIR 8181 MG PO; +ATORVASTATIN CA40 MG PO; +B-12500 MCG PO; +LANTUS100 UNIT/M SUBQ; +LASIX 20 MG TAB20 MG PO; +LISINOPRIL5 MG PO; +LOPRESSOR25 PO; +METFORMIN HCL500 MG PO; +METHOTREXATE 22.5 MG PO; +NEURONTIN 300300 M1 PO; +NORVASC5 MG PO; +OYSCO-500500 MG PO; +PERCOCET PO; +PREDNISONE 10 M10 MG PO; +PREDNISONE 20 M20 M1 PO; +SENNA8.6 MG PO; +SSD CREAM 1% 5050 GM TOP; +VITAMIN D3400 UNIT PO
== END ==
LOC: HYPER 07-06 07:02
DX: E11.622 Type 2 diabetes mellitus with other skin ulcer (principal); I87.312 Chronic venous hypertension (idiopathic) with ulcer of left lower extremity; L97.822 Non-pressure chronic ulcer of other part of left lower leg with fat layer exposed; E11.22 Type 2 diabetes mellitus with diabetic chronic kidney disease; I13.0 Hypertensive heart and chronic kidney disease with heart failure and stage 1 through stage 4 chronic kidney disease, or unspecified chronic kidney disease; N18.3 Chronic kidney disease, stage 3 (moderate); I50.33 Acute on chronic diastolic (congestive) heart failure; E78.5 Hyperlipidemia, unspecified; G47.411 Narcolepsy with cataplexy; G47.30 Sleep apnea, unspecified; K21.9 Gastro-esophageal reflux disease without esophagitis; M10.9 Gout, unspecified; M19.90 Unspecified osteoarthritis, unspecified site; M81.0 Age-related osteoporosis without current pathological fracture; Z86.73 Personal history of transient ischemic attack (TIA), and cerebral infarction without residual deficits; Z87.891 Personal history of nicotine dependence

== ENCOUNTER → 2018-09-26 | Outpatient (CLI) | payer OTHER | LOC: HYPER 08-30 07:04 | DX: E11.622 Type 2 diabetes mellitus with other skin ulcer (principal); L97.822 Non-pressure chronic ulcer of other part of left lower leg with fat layer exposed; L89.312 Pressure ulcer of right buttock, stage 2; L98.411 Non-pressure chronic ulcer of buttock limited to breakdown of skin; E78.5 Hyperlipidemia, unspecified; G47.30 Sleep apnea, unspecified; I87.2 Venous insufficiency (chronic) (peripheral); I11.0 Hypertensive heart disease with heart failure; I50.9 Heart failure, unspecified; K21.9 Gastro-esophageal reflux disease without esophagitis; M19.90 Unspecified osteoarthritis, unspecified site; M10.9 Gout, unspecified; M81.0 Age-related osteoporosis without current pathological fracture; Z86.73 Personal history of transient ischemic attack (TIA), and cerebral infarction without residual deficits; Z79.52 Long term (current) use of systemic steroids; Z87.891 Personal history of nicotine dependence ==

== ENCOUNTER → 2018-10-25 | Outpatient (CLI) | payer OTHER | LOC: HYPER 08:34 | DX: E11.622 Type 2 diabetes mellitus with other skin ulcer (principal); L97.822 Non-pressure chronic ulcer of other part of left lower leg with fat layer exposed; L98.411 Non-pressure chronic ulcer of buttock limited to breakdown of skin; L89.312 Pressure ulcer of right buttock, stage 2; I87.2 Venous insufficiency (chronic) (peripheral); M19.90 Unspecified osteoarthritis, unspecified site; K21.9 Gastro-esophageal reflux disease without esophagitis; I11.0 Hypertensive heart disease with heart failure; I50.9 Heart failure, unspecified; E78.5 Hyperlipidemia, unspecified; M10.9 Gout, unspecified; M81.0 Age-related osteoporosis without current pathological fracture; G47.30 Sleep apnea, unspecified; R60.1 Generalized edema; Z87.891 Personal history of nicotine dependence; Z79.52 Long term (current) use of systemic steroids; Z86.73 Personal history of transient ischemic attack (TIA), and cerebral infarction without residual deficits ==

== ENCOUNTER → 2019-09-12 | Outpatient (CLI) | payer OTHER | LOC: HYPER 13:57 | DX: E11.622 Type 2 diabetes mellitus with other skin ulcer (principal); L97.812 Non-pressure chronic ulcer of other part of right lower leg with fat layer exposed; S91.115A Laceration without foreign body of left lesser toe(s) without damage to nail, initial encounter; I87.2 Venous insufficiency (chronic) (peripheral); M19.90 Unspecified osteoarthritis, unspecified site; K21.9 Gastro-esophageal reflux disease without esophagitis; I11.0 Hypertensive heart disease with heart failure; I50.9 Heart failure, unspecified; E78.5 Hyperlipidemia, unspecified; M10.9 Gout, unspecified; M81.0 Age-related osteoporosis without current pathological fracture; G47.30 Sleep apnea, unspecified; Z86.73 Personal history of transient ischemic attack (TIA), and cerebral infarction without residual deficits; Z87.891 Personal history of nicotine dependence; Z79.84 Long term (current) use of oral hypoglycemic drugs; Z79.82 Long term (current) use of aspirin; X58.XXXA Exposure to other specified factors, initial encounter; Y93.89 Activity, other specified; Y92.89 Other specified places as the place of occurrence of the external cause; Y99.8 Other external cause status ==

== ENCOUNTER → 2019-09-18 | Outpatient (CLI) | payer OTHER | LOC: SJCVCIMAG 09-13 10:03 | DX: I73.9 Peripheral vascular disease, unspecified (principal); L98.499 Non-pressure chronic ulcer of skin of other sites with unspecified severity ==

== ENCOUNTER → 2019-09-26 | Outpatient (CLI) | payer OTHER | LOC: HYPER 13:50 | DX: E11.622 Type 2 diabetes mellitus with other skin ulcer (principal); L97.811 Non-pressure chronic ulcer of other part of right lower leg limited to breakdown of skin; I87.2 Venous insufficiency (chronic) (peripheral); L84 Corns and callosities; M19.90 Unspecified osteoarthritis, unspecified site; I11.0 Hypertensive heart disease with heart failure; I50.9 Heart failure, unspecified; E78.5 Hyperlipidemia, unspecified; K21.9 Gastro-esophageal reflux disease without esophagitis; M10.9 Gout, unspecified; M81.0 Age-related osteoporosis without current pathological fracture; G47.30 Sleep apnea, unspecified; Z86.73 Personal history of transient ischemic attack (TIA), and cerebral infarction without residual deficits; Z87.891 Personal history of nicotine dependence; Z79.84 Long term (current) use of oral hypoglycemic drugs; Z79.82 Long term (current) use of aspirin ==

== ENCOUNTER → 2019-10-10 | Outpatient (CLI) | payer OTHER | LOC: HYPER 13:50 | DX: E11.622 Type 2 diabetes mellitus with other skin ulcer (principal); L97.811 Non-pressure chronic ulcer of other part of right lower leg limited to breakdown of skin; I87.2 Venous insufficiency (chronic) (peripheral); G47.30 Sleep apnea, unspecified; M19.90 Unspecified osteoarthritis, unspecified site; K21.9 Gastro-esophageal reflux disease without esophagitis; I50.9 Heart failure, unspecified; E78.5 Hyperlipidemia, unspecified; I11.0 Hypertensive heart disease with heart failure; M10.9 Gout, unspecified; M81.0 Age-related osteoporosis without current pathological fracture; Z86.73 Personal history of transient ischemic attack (TIA), and cerebral infarction without residual deficits; Z87.891 Personal history of nicotine dependence; Z79.82 Long term (current) use of aspirin; Z79.84 Long term (current) use of oral hypoglycemic drugs ==

== ENCOUNTER → 2019-10-24 | Outpatient (CLI) | payer OTHER | LOC: HYPER 10:35 | DX: E11.622 Type 2 diabetes mellitus with other skin ulcer (principal); L97.122 Non-pressure chronic ulcer of left thigh with fat layer exposed; L97.811 Non-pressure chronic ulcer of other part of right lower leg limited to breakdown of skin; L84 Corns and callosities; E78.5 Hyperlipidemia, unspecified; G47.30 Sleep apnea, unspecified; I11.0 Hypertensive heart disease with heart failure; I50.9 Heart failure, unspecified; I87.2 Venous insufficiency (chronic) (peripheral); K21.9 Gastro-esophageal reflux disease without esophagitis; M19.90 Unspecified osteoarthritis, unspecified site; M10.9 Gout, unspecified; M81.0 Age-related osteoporosis without current pathological fracture; Z86.73 Personal history of transient ischemic attack (TIA), and cerebral infarction without residual deficits; Z87.891 Personal history of nicotine dependence ==

== ENCOUNTER 2020-04-01 01:45 | Emergency (ER) | payer OTHER ==
[~2020-04-01] VITALS: Ht 154.9 cm; Wt 68.0 kg
[2020-04-01] MEDS ORDERED: VITAMIN D350 MC3 PO (02:05)
[2020-04-01] MEDS ORDERED: VITAMIN B12-FO1 EAC1 PO (02:05)
[2020-04-01] MEDS ORDERED: NOVOLOG FL100 UNIT/M SUBQ (02:09)
[2020-04-01] MEDS ORDERED: APAP W/CODEINE1 TA2 PO (02:10)
[2020-04-01] MEDS ORDERED: ACETAZOLAMIDE250 M1 PO (02:10)
[2020-04-01] MEDS ORDERED: MICONAZOLE 31 EACH VAG (02:11)
[2020-04-01] MEDS ORDERED: ATROPINE SULFATE5 ML EA. EYE (02:12)
[2020-04-01] MEDS ORDERED: COSOPT PF EYE1 EACH EA. EYE (02:12)
[2020-04-01] MEDS ORDERED: PRED FORTE 1% EY5 M1 EA. EYE (02:13)
[2020-04-01] MEDS ORDERED: LIDODERM1 EACH TOP (02:13)
[2020-04-01] MEDS ORDERED: PREDNISONE 10 M10 M1 PO (02:14)
[2020-04-01] MEDS ORDERED: COLACE100 MG PO (02:14)
[2020-04-01] MEDS ORDERED: LOPRESSOR50 MG PO (02:14)
[2020-04-01] MEDS ORDERED: METHOTREXATE 22.5 M1 PO (02:14)
[2020-04-01] MEDS ORDERED: FAMOTIDINE40 MG PO (02:15)
[2020-04-01] MEDS ORDERED: LASIX 40 MG TAB40 MG PO (02:15)
[2020-04-01] MEDS ORDERED: CLARITIN10 MG PO (02:16)
[2020-04-01] MEDS ORDERED: OMEPRAZOLE40 MG PO (02:16)
[2020-04-01 02:54] LABS: ABSOLUTE NEUTROPHILS 4.9 thou/uL (1.4-8.2); BASOPHILS 1.3 % (0.0-2.0); EOSINOPHILS 0.8 % (0.0-3.0); HEMATOCRIT 33.8 % (37.0-47.0); HEMOGLOBIN 10.9 gm/dL (12.0-15.0); LYMPHOCYTES 13.2 % (24.0-44.0); MCH 34.7 pg (26.0-34.0); MCHC 32.2 g/dL (28.0-37.0); MCV 107.6 fL (80.0-100.0); PLATELET COUNT 160 thou/uL (150-400); POLYS 77.7 % (36.0-66.0); RBC 3.14 mil/uL (4.20-5.00); RDW 23.8 % (10.5-14.5); WBC 6.3 thou/uL (4.0-11.0)
[2020-04-01 02:56] LABS: URINE BILIRUBIN NEGATIVE (Negative); URINE BLOOD NEGATIVE (Negative); URINE CLARITY CLEAR; URINE COLOR YELLOW; URINE GLUCOSE-RANDOM* NEGATIVE (Negative); URINE KETONES NEGATIVE (Negative); URINE LEUKOCYTES-REFLEX NEGATIVE (Negative); URINE NITRITE-REFLEX NEGATIVE (Negative); URINE PROTEIN (DIPSTICK) NEGATIVE (Negative)
[2020-04-01 02:59] LABS: CALCIUM 8.3 mg/dL (8.5-10.1); CREATININE 1.7 mg/dL (0.6-1.0); POTASSIUM 3.4 mmol/L (3.5-5.1)
[2020-04-01 03:05] LABS: ALBUMIN 2.8 g/dL (3.4-5.0); TOTAL BILIRUBIN 0.5 mg/dL (0.2-1.0); TOTAL PROTEIN 6.2 g/dL (6.4-8.2)
[2020-04-01 03:29] LABS: ANISOCYTOSIS 3+; MACROCYTES 2+; POLYCHROMASIA 2+
[2020-04-01] MEDS ORDERED: PREDNISONE 20 M20 MG PO ×2 (03:30→03:47)
[2020-04-01 03:40] VITALS: BP 109/59
--- NOTE | 2020-04-01 10:21 | EKG ---
[facility] [place] [address] ELECTROCARDIOGRAM REPORT Name: ADI PALACIOS [id number] Admission: 04/01/20 Attend Phys: Discharge: 04/01/20 Date of : 46 Report #: [id number] THIS REPORT FOR: cc: FAM - No family physician/PCP FAM - No family physician/PCP Yasir Petit MD [facility] THIS REPORT FOR: //name// [facility] ED Test Date: 2020-04-01 Test Time: 02:25:11 Pat Name: ADI PALACIOS Department: Room: Gender: F Mainframe Architect: [place] [address] : 1945 Requested By: Camilo Harrell Order Number: [id number] MD: Yasir Petit Measurements Intervals [place] Rate: 89 P: 45 [place]: 123 QRS: 20 QRSD: 78 T: 103 QT: 362 QTc: 441 Interpretive Statements Sinus rhythm Multiple premature complexes, vent & supraven Early R wave progression Inferior infarct, old Compared to ECG 04/26/2018 08:55:55 Sinus tachycardia no longer present Atrial premature complex(es) no longer present Electronically Signed On 04-01-2020 10:21:33 CDT by Yasir Petit [email or web address] <ELECTRONICALLY SIGNED> By: Yasir Petit MD, [facility] 04/01/20 1021 4 4 Yasir Petit MD, [facility] /EPI
== END 2020-04-01 03:43 | disposition home or self-care (01) ==
LOC: ER 01:45
PROVIDERS: Emergency Medicine
DX: R53.1 Weakness (principal); R03.1 Nonspecific low blood-pressure reading; H57.89 Other specified disorders of eye and adnexa; I10 Essential (primary) hypertension; E78.00 Pure hypercholesterolemia, unspecified; M06.9 Rheumatoid arthritis, unspecified; Z86.73 Personal history of transient ischemic attack (TIA), and cerebral infarction without residual deficits; Z79.4 Long term (current) use of insulin; Z79.899 Other long term (current) drug therapy; Z79.82 Long term (current) use of aspirin

== ENCOUNTER 2020-04-28 11:24 | Emergency (ER) | payer OTHER ==
[~2020-04-28] VITALS: Ht 154.9 cm; Wt 72.6 kg
[~2020-04-28 11:24] MED LIST changes: +ACETAZOLAMIDE250 M1 PO; +APAP W/CODEINE1 TA2 PO; +ATROPINE SULFATE5 ML EA. EYE; +CLARITIN10 MG PO; +COLACE100 MG PO; +COSOPT PF EYE1 EACH EA. EYE; +FAMOTIDINE40 MG PO; +LASIX 40 MG TAB40 MG PO; +LIDODERM1 EACH TOP; +LOPRESSOR50 MG PO; +METHOTREXATE 22.5 M1 PO; +MICONAZOLE 31 EACH VAG; +NOVOLOG FL100 UNIT/M SUBQ; +OMEPRAZOLE40 MG PO; +PRED FORTE 1% EY5 M1 EA. EYE; +PREDNISONE 10 M10 M1 PO; +PREDNISONE 20 M20 MG PO; +VITAMIN B12-FO1 EAC1 PO; +VITAMIN D350 MC3 PO
[2020-04-28 12:25] LABS: HEMATOCRIT 33.9 % (37.0-47.0); HEMOGLOBIN 10.8 gm/dL (12.0-15.0); MCH 34.5 pg (26.0-34.0); MCHC 31.9 g/dL (28.0-37.0); RBC 3.13 mil/uL (4.20-5.00); RDW 19.8 % (10.5-14.5); WBC 3.4 thou/uL (4.0-11.0)
[2020-04-28 12:34] LABS: ANION GAP 11 mmol/L (7-16); BUN 40 mg/dL (7-18); CALCIUM 8.5 mg/dL (8.5-10.1); CHLORIDE 109 mmol/L (98-107); CO2 25 mmol/L (21-32); GLUCOSE 96 mg/dL (74-106); POTASSIUM 3.7 mmol/L (3.5-5.1); SODIUM 145 mmol/L (136-145)
[2020-04-28 12:42] LABS: TROPONIN-I <0.06 ng/mL (<0.06)
[2020-04-28 14:14] VITALS: BP 97/51
--- NOTE | 2020-04-29 07:25 | EKG ---
[facility] [place] [address] ELECTROCARDIOGRAM REPORT Name: ADI PALACIOS Room #: DEP [facility]#: [id number] Admission: 04/28/20 Attend Phys: Discharge: 04/28/20 Date of : 46 Report #: [id number] THIS REPORT FOR: cc: JOE - Marilee family physician/PCP JOE - Marilee family physician/PCP Yasir Petit MD [facility] THIS REPORT FOR: //name// 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[place] [facility] [place] 1945 Requested By: Jose Cueto Order Number: [id number] MD: Yasir Petit Measurements Intervals [place] Rate: 77 P: 52 [place]: 131 QRS: 28 QRSD: 78 T: 114 QT: 398 QTc: 451 Interpretive Statements Sinus rhythm Possible Inferior-posterior infarct, old Lateral T wave abnormality Compared to ECG 04/01/2020 02:25:11 Premature ventricular complexes are no longer present Electronically Signed On 04-29-2020 7:25:01 CDT by Yasir Petit [email or web address] <ELECTRONICALLY SIGNED> By: Yasir Petit MD, FACC 04/29/20 0725 1245 1245 Yasir Petit MD, [facility] /EPI
== END 2020-04-28 14:14 | disposition home or self-care (01) ==
LOC: ER 11:24
PROVIDERS: Emergency Medicine
DX: U07.1 COVID-19 (principal); R05 Cough; I10 Essential (primary) hypertension; E78.5 Hyperlipidemia, unspecified; Z79.899 Other long term (current) drug therapy

== ENCOUNTER 2020-04-29 18:30 | Inpatient (IN) | payer OTHER ==
[~2020-04-29] VITALS: Ht 167.6 cm; Wt 76.2 kg
--- NOTE | ~2020-04-29 | HC ---
[facility] [place] [address] CONSULTATION Name: ADI PALACIOS Room #: 213-P [facility] IN M.R.#: [id number] Admission: 04/29/20 Attend Phys: Flo Pierre Discharge: 05/31/20 Date of : 46 Report #: [id number] THIS REPORT FOR: cc: JOE - No family physician/PCP JOE - No family physician/PCP Michele Wakefield MD ~ DATE OF SERVICE: 05/31/2020 WOUND CARE CONSULTATION PERSONAL PHYSICIAN: Dr. Pierre. CHIEF COMPLAINT: Gluteal rash. HISTORY OF PRESENT ILLNESS: This is a 75-year-old black female who has been hospitalized for a prolonged period of time secondary to COVID-19 infection and because of fecal and urinary incontinence, the patient started developing moisture-associated dermatitis, rash in her sacral gluteal region over the past several days. We have been asked to follow the patient and give appropriate orders. The nursing staff deny any other associated ulcerations or wounds. PAST MEDICAL HISTORY: Significant for diabetes mellitus type 2, hypertension, anemia, previous CVA with left-sided hemiparesis, dysphagia, fecal and urinary incontinence, pulmonary embolus. CURRENT MEDICATIONS: Multiple, I reviewed the patient's medication list. DRUG ALLERGIES: ACETAMINOPHEN, HYDROCODONE. SOCIAL HISTORY: The patient has a history of tobacco use in the past, has been hospitalized for the past several days. FAMILY HISTORY: Not pertinent to current medical condition. REVIEW OF SYSTEMS: CONSTITUTIONAL: The patient denies fevers or chills. NEUROLOGIC: The patient has overall generalized weakness, but no isolated weakness in the right leg except on the left side from a previous CVA. EYES: No complaints. ENT: No complaints. CARDIAC: The patient denies chest pain, palpitations, peripheral edema. RESPIRATORY: The patient denies shortness of breath. Does have a persistent cough, but no associated wheezes. GASTROINTESTINAL: The patient denies nausea, vomiting, abdominal pain. [facility] [address] [place] [address] CONSULTATION Name: ADI PALACIOS Room #: 213-P [facility] IN [facility]#: [id number] Admission: 04/29/20 Attend Phys: Flo Pierre Discharge: 05/31/20 Date of : 47 Report #: [id number] GENITOURINARY: The patient denies urgency or frequency, but has urinary incontinence. MUSCULOSKELETAL: No complaints. SKIN: The patient has a rash in the sacral-gluteal region. PHYSICAL EXAMINATION: VITAL SIGNS: Temperature 37, pulse 92, respirations 20, BP 131/68. GENERAL: This is an elderly black female who is in no obvious distress. HEENT: Normocephalic, atraumatic. Mucous membranes are somewhat dry. Pupils are round. Sclerae white. NECK: Without JVD. LUNGS: Slight diminished breath sounds heard throughout, occasional wheeze. HEART: Regular. ABDOMEN: Soft, nontender. EXTREMITIES: The patient moves all extremities without difficulty. Bilateral heels are intact. Evaluation of sacrococcygeal region and gluteal region reveals moisture-associated dermatitis with excoriation. No signs of pressure ulcerations. NEUROLOGIC: Cranial nerves 2-12 grossly intact. Motor and sensory grossly intact. IMPRESSION: 1. Moisture-associated skin dermatitis in the sacral-gluteal region. 2. Fecal incontinence. 3. Urinary incontinence. 4. History of COVID-19 infection. 5. History of pulmonary embolus with hypoxia. 6. History of hypertension. 7. Diabetes mellitus type 2. 8. Anemia. 9. Acute kidney injury. 10. Cerebrovascular accident with left-sided hemiparesis. 11. Debility. 12. Dysphagia. 13. History of tobacco abuse. 14. History of severe protein-calorie malnutrition -- severe with albumin 1.7. PLAN: We will start moisture barrier cream to the sacral-gluteal region twice daily and p.r.n. and leave open to air. We will put the patient on a low air loss mattress, have her be turned every 2 hours. Rectal tube in place already at this time for fecal incontinence. Garcia catheter in place for urinary incontinence. Pulmonary in the hospital to follow the patient for other medical conditions. We will make sure we maximize the patient's p.o. protein supplementation as able for healing as well as use [place] [address] CONSULTATION Name: SUZANNEADI Room #: 213-P [facility] IN M.R.#: [id number] Admission: 04/29/20 Attend Phys: Flo Pierre Discharge: 05/31/20 Date of : 47 Report #: [id number] feeding. PT and OT to see the patient to assist with generalized debility and strengthening and make sure we continue all other current medications. By: 1726 0032 Michele Wakefield MD /nt
[2020-04-29 18:30] VITALS: BP 167/72
[2020-04-29 18:56] LABS: HCO3 21.8 mmol/L (22.0-26.0); PCO2 42.6 mmHg (35.0-45.0); PO2 85.6 mmHg (80.0-100.0); sO2 95.8 % (92.0-98.0)
[2020-04-29 18:57] LABS: pH 7.327 (7.360-7.450)
[2020-04-29 20:37] LABS: ABSOLUTE NEUTROPHILS 4.4 thou/uL (1.4-8.2); BASOPHILS 0.4 % (0.0-2.0); EOSINOPHILS 1.2 % (0.0-3.0); HEMATOCRIT 37.3 % (37.0-47.0); HEMOGLOBIN 11.6 gm/dL (12.0-15.0); LYMPHOCYTES 11.8 % (24.0-44.0); MCH 34.3 pg (26.0-34.0); MCHC 31.2 g/dL (28.0-37.0); MCV 110.1 fL (80.0-100.0); PLATELET COUNT 71 thou/uL (150-400); POLYS 79.6 % (36.0-66.0); RBC 3.39 mil/uL (4.20-5.00); RDW 20.3 % (10.5-14.5)
[2020-04-29 21:02] LABS: CALCIUM 8.1 mg/dL (8.5-10.1); CREATININE 2.1 mg/dL (0.6-1.0); POTASSIUM 3.8 mmol/L (3.5-5.1)
[2020-04-29 21:05] LABS: TOTAL BILIRUBIN 0.4 mg/dL (0.2-1.0); TOTAL PROTEIN 6.2 g/dL (6.4-8.2)
[2020-04-30] VITALS (7 sets, daily range): BP systolic 108–135; BP diastolic 62–75
--- NOTE | 2020-04-30 01:37 | NUR ---
UPDATE GIVEN TO PT'S DIANE RICHARDSON [phone]
--- NOTE | 2020-04-30 05:42 | NUR ---
RECEIVED REPORT FROM ER NURSE. PT ARRIVED TO ROOM 359 AROUND 0200. PT IS VERY DROWSY AND CONFUSED. PT WAS UNABLE TO HELP WITH ADMISSION HX. VSS. AFEBRILE. PT HAS BEEN SLEEPING MOST OF THE NIGHT. RESPIRATIONS EVEN AND UNLABORED. O2 SATS STABLE ON 3L NC. REPOSITIONED TO PREVENT SKIN BREAKDOWN. FALL PRECAUTIONS IN PLACE. PROGRESSING WELL TOWARD POC GOALS.
--- NOTE | 2020-04-30 11:59 | NUR ---
WOUND CONSULT; CAME TO ASSESS THE PATIENTS WOUND AND THE RN STATED THAT THE ORDER WAS ENTERED IN ERROR. JUST SOME SKIN CHANGES FROM A OLD WOUND. SKIN IS CLEAN, DRY AND INTACT. INSTRUCTED THE RN TO RECONSULT IF NEEDED. DISCUSSED WITH RN RECOMMENDATIONS; D/C FROM WOUND CARE
--- NOTE | 2020-04-30 15:56 | NUR ---
INITIAL ASSESSMENT: Received consult. FIDELIA reviewed chart and spoke with nursing and attending physician. Pt was admitted from home due to acute respiratory failure r/t COVID-19. Pt placed in Enhanced Isolation. Pt had tested positive as an outpatient. Pt is afebrile and requiring 3-4L of O2. Pt is on IV abx and IV steroids. ID consulted. Pt to have convalescent plasma. Pt may not be able to have Remdesivir due to kidney function. Therapy ordered today to evaluate pt for discharge needs. Pt with hx of CVA with left sided weakness. FIDELIA spoke with pt's dtr, Rebecca, via phone. Introduced role of FIDELIA. Pt lives at home with Rebecca, who has also tested positive for COVID. Prior to admission, pt was able to ambulate with a walker and also has a w/c. Pt's dtr states that pt has not been eating or drinking well since the weekend. Pt has used [facility] in the past and has been to [facility]. Pt goes to [facility] for primary care. Goal is for pt to return home when medically stable. Pt has 5 hours of daily care through her [place]icaid. Her grandson is her paid caregiver. FIDELIA is following to assist as needed with discharge planning.
--- NOTE | 2020-04-30 19:45 | NUR ---
ASSUMED CARE APPROX 0700. PT ALERT AND ORIENTED X2. PT WAS VERY DROWSY AT START OF SHIFT, BUT BECAME MORE ALERT THE DAY PROGRESSED. PT'S DTRS, BRONSON AND TK, UPDATED ON STATUS. SR ON TELE MONITOR. PT C/O RT EYE PAIN D/T H/O SHINGLES. REPORTED PAIN RELIEF W/ TYLENOL. WILL CONTINUE TO MONITOR.
[2020-05-01 00:06] LABS: GLYCOHEMOGLOBIN (HGB A1C) 5.7 % (4.8-5.6)
[2020-05-01 04:57] VITALS: BP 123/69
--- NOTE | 2020-05-01 07:17 | NUR ---
ASSUMED PT CARE AROUND 1930. AXOX1. PLEASANTLY CONFUSED. VSS. NO S/S ACUTE DISTRESS NOTED OR REPORTED AT THIS TIME. CARE TRANSFERRED TO ANOTHER RN AT THIS TIME.
[2020-05-01 07:53] LABS: HEMATOCRIT 32.5 % (37.0-47.0); HEMOGLOBIN 10.3 gm/dL (12.0-15.0); MCHC 31.8 g/dL (28.0-37.0); MCV 107.1 fL (80.0-100.0); RBC 3.03 mil/uL (4.20-5.00); RDW 20.2 % (10.5-14.5); WBC 4.7 thou/uL (4.0-11.0)
[2020-05-01 08:30] LABS: ALBUMIN 2.5 g/dL (3.4-5.0); CALCIUM 8.7 mg/dL (8.5-10.1); CREATININE 1.2 mg/dL (0.6-1.0); MAGNESIUM 1.7 mg/dL (1.8-2.4); PHOSPHORUS 2.9 mg/dL (2.5-4.9); POTASSIUM 3.5 mmol/L (3.5-5.1)
--- NOTE | 2020-05-01 14:58 | NUR ---
Recommend ST eval if pt showing any s/s dysphagia at meals
[2020-05-01 15:20] VITALS: BP 164/94
--- NOTE | 2020-05-01 15:51 | NUR ---
FIDELIA reviewed chart and spoke with nursing and attending physician. Pt remains in Enhanced Isolation due to COVID-19. Pt is afebrile and on 2L of O2. Pt is on IV abx/IV Lasix. Pt had convalescent plasma. Pt is not a candidate for Remdesivir. Therapy evals ordered and are pending at this time. Pt lives at home with her daughter and has in-home care. FIDELIA is following to assist as needed with discharge planning.
--- NOTE | 2020-05-01 16:38 | NUR ---
ASSUMED CARE APPROX 0700. PT ALERT AND ORIENTED X1-2. PT CONFUSED. PT DENIES PAIN THIS SHIFT. SR ON TELE MONITOR. ON ROOM AIR AT THIS TIME FROM 2LNC. PT FREQUENTLY REMOVES 02. 02 SATS CLOSELY MONITORED. HAS REMAINED BTWN 95-98% ON ROOM AIR W/O DISTRESS NOTED. PT'S DTR, TK, UPDATED ON STATUS. PT SLOWLY PROGRESSING TOWARDS PLAN OF CARE GOALS. WILL CONTINUE TO MONITOR.
[2020-05-01 19:18] VITALS: BP 145/78
--- NOTE | 2020-05-02 00:27 | NUR ---
PT RESTING IN BED. PT TALKS WITH STAFF BUT EYES REMAIN CLOSED. IVF INTACT. PT REPOSITIONED BY STAFF. EXT FEMALE CATH INTACT. PT CONTINUES WITH LOOSE COUGH. LUNGS DIMINISHED. BED ALARM ON. PTS DAUGHTER CALLED FOR UPDATE.
[2020-05-02 06:29] LABS: CALCIUM 8.8 mg/dL (8.5-10.1); CREATININE 1.1 mg/dL (0.6-1.0); POTASSIUM 3.2 mmol/L (3.5-5.1)
[2020-05-02 07:32] VITALS: BP 180/104
--- NOTE | 2020-05-02 10:08 | NUR ---
PT PULLED OUT IV. PAGE IV TEAM TO ESTABLISH NEW IV.
--- NOTE | 2020-05-02 14:48 | NUR ---
FIDELIA reviewed chart and spoke with nursing and attending physician. Pt remains in Enhanced Isolation due to COVID-19. Pt is afebrile and not on O2. Pt is on IV abx. Pt is NPO. to evaluate pt. FIDELIA spoke with pt's dtr, Rebecca, via phone to discuss discharge plans: post-acute placement v. Home with HH. Rebecca also has COVID. Pt's dtr states they would like for pt to go to rehab/SNF for therapy. FIDELIA discussed options for post-acute placement who are in network with pt's insurance and are accepting COVID positive pts. Pt's dtr would be agreeable with if it would be an option. Otherwise, pt's dtr does not want pt to go to [facility]. Pt's family would be agreeable with services. Rebecca to discuss with family. FIDELIA is following to assist as needed with discharge planning.
[2020-05-02 15:36] VITALS: BP 167/117
[2020-05-02 19:16] VITALS: BP 137/103
--- NOTE | 2020-05-02 23:12 | NUR ---
PT RESTING IN BED. PT SLEEPY. EYES DO NOT OPEN, PT NOT VERBALLY RESPONDING TO STAFF BUT DOES MUMBLE AND RUB HER FACE AND BODY. IVF AND EXT CATH INTACT. PT NPO AFTER SWALLOW EVALUATION. PT DECLINED MOUTH CARE. HANDS EDEMA, ABD DISTENDED. BED ALARM ON.
[2020-05-03 03:54] VITALS: BP 159/94
--- NOTE | 2020-05-03 05:36 | NUR ---
REPEAT COVID SWAB IS POSITIVE.
[2020-05-03 08:05] VITALS: BP 157/99
--- NOTE | 2020-05-03 16:08 | NUR ---
FIDELIA reviewed chart and spoke with nursing and attending physician. Pt remains in Enhanced Isolation due to COVID-19. Pt is afebrile and is not requiring O2. Pt is on IV abx. No weekend discharge planned. Pt is NPO following ST eval. FIDELIA spoke with pt's dtr, Rebecca, via phone. Update provided. Pt's dtr states she would like pt to be considered for 5N if possible. FIDELIA explained need for insurance auth and for pt to be cleared by physicians to be rehab status. Pt's dtr verbalized understanding. Pt's dtr would be agreeable with HH also if 5N is not an options. FIDELIA updated attending physician. Pt's dtr is concerned about pt's trouble swallowing. Pt has had a peg tube in the past. FIDELIA is following to assist as needed with discharge planning.
--- NOTE | 2020-05-03 16:34 | NUR ---
ASSUMED CARE APPROX 0700. PT ALERT AND ORIENTED X1 TO SELF. PT CONFUSED. ASSESSMENT CHARTED. PT'S MEDICATION ON HOLD THIS AM D/T PT BEING NPO. PT HR INCREASED AND SUSTAINED IN 120'S-130S. DR. CROWE NOTIFIED. OK TO RESUME METOPROLOL. GIVEN CRUSHED IN APPLESAUCE AND W/ NO COMPLICATIONS. PT'S HR NOW IN LOW 100'S. PT'S DTR, BRONSON, UPDATED ON STATUS. PT RESTING COMFORTABLY IN BED. WILL CONTINUE TO MONITOR.
[2020-05-03 16:37] VITALS: BP 150/74
[2020-05-03 20:07] VITALS: BP 143/87
--- NOTE | 2020-05-03 22:46 | NUR ---
PT RESTING IN BED SLEEPING DURING ASSESSMENT AND VS. LUNGS REMAIN DIMINSHED. IVF INTACT. PT CONTINUES WITH L HAND EDEMA. BED ALARM ON.
--- NOTE | 2020-05-04 01:47 | NUR ---
PTS HR INCREASED 130 TO 150, PT GIVEN PREVIOUSLY HELD PO LOPRESSOR. PT SWALLOWS POORLY. PROVIDER UPDATED.
[2020-05-04 04:27] VITALS: BP 161/76
[2020-05-04 06:13] LABS: HEMATOCRIT 33.1 % (37.0-47.0); HEMOGLOBIN 10.9 gm/dL (12.0-15.0); MCH 34.1 pg (26.0-34.0); MCV 103.5 fL (80.0-100.0); RBC 3.2 mil/uL (4.20-5.00); RDW 18.8 % (10.5-14.5); WBC 5.3 thou/uL (4.0-11.0)
[2020-05-04 07:53] VITALS: BP 127/62
[2020-05-04 15:11] VITALS: BP 133/74
--- NOTE | 2020-05-04 19:31 | NUR ---
RN ASSUMED PT'S CARE AT 0700AM, PT IS DROWSY , SHE OPENS HER EYES BY VOICE , PT IS COFUSED AND SHE CANNOT FOLLOW COMMANDS, RN HAS REPORTED PT IS UNABLE TO EAT AND TAKE MEDICATIONS, NEW ORDER TO PLACE DOBBHOFF BY ENROLLMENT ELIGIBILITY REPRESENTATIVE ORDER OK TO GIVE MEDICATIONS PER DOBBHOFF TUNE.
[2020-05-04 20:15] VITALS: BP 127/67
[2020-05-04 21:35] VITALS: BP 144/78
[2020-05-04 23:20] VITALS: BP 108/66
--- NOTE | 2020-05-05 02:55 | NUR ---
PT IS NONVERBAL.INCOMPREHENSIBLE SOUNDS NOTED. OPENS EYES SPONTANEOUSLY.VSS. SAT 91-92 ON RA . PLACED ON 2LNC. SAT 99%. DECREASED O2 TO 1LNC. 1+ EDEMA NOTED TO RIGHT AND LEFT ARMS AND HANDS. BOTH ARMS ARE PLACED ON PILLOWS. REPOSITIONING PT Q 2 HRS. MOISTURE BARRIER APPLED TO REDDENED BOTTOM. SUPERFICIAL BREALDOWN NOTED. PT INC OF SOFT LOOSE STOOL. PURE WICK INTACT DRAINING CLEAR YELLOW URINE. PICTURES TAKEN. RIGHT ARM HAD DRY OPEN ABRASION NOTED UPON INITIAL ASSESSMENT. PICTURES TAKEN ALSO AND MEPILEX FOAM APPLIED TO PROTECT SKIN. BED DOWN CALL LIGHT IN REACH. BED ALARM ON. ATTEMPTED TO FACE TIME PTS FAMILY BRONSON BUT WAS UNABLE TO CONNECT. WILL TRY AGAIN IN AM.
[2020-05-05 04:09] VITALS: BP 112/80
[2020-05-05 08:12] VITALS: BP 113/58
[2020-05-05] MEDS ORDERED: LOPRESSOR50 PO (09:06)
[2020-05-05] MEDS ORDERED: HEPARIN SO5000 UNIT/ SUBQ (09:06)
[2020-05-05 12:56] LABS: ALBUMIN 1.7 g/dL (3.4-5.0); CALCIUM 8.2 mg/dL (8.5-10.1); CREATININE 0.8 mg/dL (0.6-1.0); MAGNESIUM 1.3 mg/dL (1.8-2.4); TOTAL BILIRUBIN 0.4 mg/dL (0.2-1.0); TOTAL PROTEIN 5.1 g/dL (6.4-8.2)
[2020-05-05 12:58] LABS: POTASSIUM 2.3 mmol/L (3.5-5.1)
[2020-05-05 16:40] VITALS: BP 103/57
--- NOTE | 2020-05-05 19:04 | NUR ---
RN ASSUMED PT'S CARE AT 0700AM, PT OPENS HER EYE BY VOICE, BUT PT DOES NOT TALKING AND PT DOES NOT FOLLOW COMMANDS, PT STARTS TUBE FEEDING 45ML/HR PER DOBBHOFF TUBE, PT IS TOLERAIVE TUBE FEEDING, NO N/V
[2020-05-05 19:08] VITALS: BP 144/75
--- NOTE | 2020-05-05 19:18 | NUR ---
RN HAS CALLED DR TO REPORT PT'S LOW POTASSIUM 2.3 AND LOW MAGNESIUM 1.3, NEW ORDER TO REPLACE , GI HAS CONSULT FOR PEG TUBE PLACEMENT, RN HAS UPDATED PT'S INFORMATION TO PT'S DAUGHTERS.
[2020-05-05 23:16] VITALS: BP 114/62
--- NOTE | 2020-05-06 01:18 | NUR ---
PT CONFUSED MOANS INCOMPEHENSIBLY AT TIMES. OPENS EYES SPONTANEOUSLY. SAYS UMHUM AT TIMESIN RESPONSE TO QUESTIONS. VSS AFEBRILE. SAT 100% ON 1LNC. LUNGS CLEAR WITH DIMINSHED BASES. UNLABORDED. INC OF LIQUID STOOL LG AMTS. NOTIFIED PUMPER BREWERY Franny ROMERO. WILL PLACE FMS SOON CT SCAN TECH OBTAINS FOM CS. MOISTURE BARRIER APPLIED Q 2 HRS. PERINEAL AREA IS REDDENED. PUREWICK SYSTEM IS INTACT DRAINING CLEAR YELLOW URINE. TUNING PT Q 2 HRS. BED YARA . CALL LIGHTIN REACH. BED ALARM ON. TF INFUSING AT 45 ML HR. NO RESIDUALS NOTED SO FAR.
[2020-05-06 03:53] VITALS: BP 112/44
--- NOTE | 2020-05-06 06:19 | NUR ---
STOOL FOR CDIFF SENT TO LAB. FMS APPLIED DUE TO LIQUID STOOLS. JOHNSON AND BUTTOCKS REDDENED. MOISTURE BARRIER APPLIED. NO TF RESIDUALS NOTED. VSS T 98.8 THIS AM.
[2020-05-06 06:47] VITALS: BP 118/68
--- NOTE | 2020-05-06 10:09 | NUR ---
TF at 45ml/hr not meeting estimated nutrition needs. Recommend advance rate to new goal of 60ml/hr and start water flushes of 150ml every 6hr. Pt also needs K+ replaced, 2.3 (low)
[2020-05-06 10:38] LABS: CREATININE 0.8 mg/dL (0.6-1.0); MAGNESIUM 1.9 mg/dL (1.8-2.4)
[2020-05-06 10:41] LABS: POTASSIUM 3.4 mmol/L (3.5-5.1)
[2020-05-06 15:00] VITALS: BP 116/66
--- NOTE | 2020-05-06 15:36 | NUR ---
SW reviewed chart and spoke with nursing and attending physician. Pt remains in Enhanced Isolation due to COVID-19. Pt is afebrile and on 1L of O2. Pt is on IV abx. GI consulted for possible peg tube placement. Repeat COVID test ordered today. 5N consult also ordered to evaluate pt for possible admission to inpt acute rehab. Will need insurance authorization for post-acute placement. FIDELIA is following to assist as needed with discharge planning.
--- NOTE | 2020-05-06 18:14 | NUR ---
RN ASSUMED PT'S CARE AT 0700AM, PT OPENS HER EYES, BUT PT IS UNVERBAL , PT DOES NOT FOLLOW COMMANDS, PT IS TOLERATED TUBE FEEDING AT 45ML/HR, PT'S BS AND BS ARE STABLE, PT HAS COVID TEST DONE DONE, RESULT IS PENDING , PT HAS ABD AND PELVIS CT SCAN DONE PER GI DR ORDER, PT STILL HAS LIQUID STOOL, CHECK STOOL ,C-DIFF NEGATIVE.
[2020-05-06 19:24] VITALS: BP 119/67
--- NOTE | 2020-05-07 03:13 | NUR ---
PT PROGRESSING SLOWLY TOWARDS D/C GOALS. VSS AFEBRILE SATS WNL ON 1 LNC. TF INFUSING WITHOUT DIFFICULTY PER DOBHOFF, FMS DRAINING MAD AMTS BROWN LIQUID STOOL. EXTERNAL FEMALE CATHETER IS INTACT DRAING MIOD AMTS JOHNNY COLORED URINE. BED DOWN CALL LIGHT IN REACH BED ALARM ON. TURNING PT Q 2 HRS. MOISTURE BARRIER TO BOTTOM.
[2020-05-07 04:20] VITALS: BP 149/62
[2020-05-07 07:27] VITALS: BP 139/75
[2020-05-07 15:40] VITALS: BP 140/78
--- NOTE | 2020-05-07 16:09 | NUR ---
FIDELIA reviewed chart and spoke with nursing and attending physician. Pt remains in Enhanced Isolation due to COVID-19. Pt is afebrile and on 1L of O2. Pt is on IV abx. Pt to have peg tube placed tomorrow. FIDELIA spoke with pt's dtr, Rebecca, via phone. Discussed peg tube placement and discharge plan. Pt's dtr is hopeful that pt can go to 5N. FIDELIA explained that pt is still COVID positive and insurance would need to authorize post-acute care. Pt's dtr verbalized understanding. Pt's dtr had questions regarding pt's recent CT scan. FIDELIA encouraged Rebecca to contact pt's nurse to review results. FIDELIA is following to assist as needed with discharge planning.
--- NOTE | 2020-05-07 18:37 | NUR ---
RN ASSUMED PT'S CARE AT 0700AM, PT IS UNVERBAL , PT OPENS HER EYES, AND SHE DOES NOT FOLLOW COMMANDS, PT'S R NARE DOBBHOFF TUBE IS IN PLACE , PT IS TOLERATED TUBE FEEDING AT 45ML/HR, PT STILL HAS LIQUID STOOL , PT IS PLANNING TO HAVE PEG TUBE PLACEMENT TOMORROW , PT'S DAUGHTER HAS SONSENT BY PHONE FOR PEG TUBE , RN WILL REPORT TO NEXT SHIFT , PT'S TUBE FEEDING WILL HOLD AFTER MN, THEN START IV FLUID PER ORDER.
[2020-05-07 19:54] VITALS: BP 124/79
[2020-05-08 03:31] VITALS: BP 131/76
--- NOTE | 2020-05-08 06:24 | NUR ---
ASSUMED CARE OF PT AT 1900HRS. PT AOX1 AND NEEDS MUST BE ANTICIPATED. FALL PRECAUTION IN PLACE. FMS IN PLACE AND PATIENT. EXTERNAL FEMALE CATH IN PLACE. DOBBHOFF IN PLACE AT 68 CM. TF HELD AT MN FOR PROCEDURE IN THE AM. PT REPORTED PAIN AND WAS TREATED WITH PRN PAIN MEDS. PT WAS TURNED Q2H. PT WAS ABLE TO GET COMFORTABLE AND SLEEP PART OF THE SHIFT. VSS AND NO S/S OF ACUTE DISTRESS. WILL CONTUNUE TO MONITOR.
[2020-05-08 06:25] LABS: HEMATOCRIT 27.9 % (37.0-47.0); HEMOGLOBIN 8.9 gm/dL (12.0-15.0); MCH 33.5 pg (26.0-34.0); MCHC 31.8 g/dL (28.0-37.0); MCV 105.3 fL (80.0-100.0); RBC 2.65 mil/uL (4.20-5.00); RDW 18.6 % (10.5-14.5); WBC 6.1 thou/uL (4.0-11.0)
[2020-05-08 08:15] VITALS: BP 157/73
--- NOTE | 2020-05-08 15:58 | NUR ---
FIDELIA reviewed chart and spoke with nursing and attending physician. Pt remains in Enhanced Isolation due to COVID-19. Pt is afebrile and not requiring O2. Pt is on IV abx. Pt to have peg tube placed on Wednesday per GI. FIDELIA discussed case with 5N rehab tech. Pt is not a candidate for inpt acute rehab. FIDELIA spoke with pt's dtr, Rebecca, via phone to provide update. Lengthy discussion with Rebecca regarding plan of care and discharge plan. Pt's dtr is currently at home in isolation due to COVID. FIDELIA explained that 5N is not an option at this time, due to pt's inability to tolerate 3 hours of therapy. Pt's dtr verbalized understanding. Pt's dtr is requesting video call with pt. FIDELIA notified pt's nurse. FIDELIA is following to assist as needed with discharge planning.
[2020-05-08 18:05] VITALS: BP 134/66
--- NOTE | 2020-05-08 18:41 | NUR ---
PT CARE ASSUMED AT 0700, PT NON VERBAL MOANS AT TIMES. UNABLE TO ASSESS PAIN. PT IS ON 2L OF OXYGEN NO SIGNS OF DISTRESS NOTED. PT DOPHOFF IN PLACE, PLACEMENT CHECKED. 1200 GI DOCTOR ROUNDING STATED PT IS NOT GOING DOWN FOR PEG TUBE UNTIL WEDNESDAY AND FEEDING TUBE CAN BE RESTARTED. PT TURNED EVERY 2 HOURS. FAMILY CALLED AND UPDATED ABOUT PT CARE. WILL CONTINUE TO MONITOR.
[2020-05-08 19:45] VITALS: BP 149/76
[2020-05-09] VITALS (33 sets, daily range): BP systolic 87–155; BP diastolic 40–78
--- NOTE | 2020-05-09 05:10 | NUR ---
SLEPT MOST OF SHIFT. DOES RESPOND TO NAME AND SHAKE HEAD AT TIMES TO ANSWERS. REPOSITIONED NEEDED FOR COMFORT AND SKIN CARE. AT 0418 PATIENT MOANING AND HEART RATE INCREASING TO 130'S, HYDROCODONE AND LOPRESSOR IVP GIVEN. 0445 HR RATE 110'S AND NO MOANING AT THIS TIME NOTED. WORKING ON GOALS AND PLAN OF CARE FOR NOC. RECTAL TUBE IN PLACE DRAINING LARGE AMOUNT LIQUID DARK GREEN STOOL. PROGRESSING TOWARDS PEG PLACEMENT FOR WEDNESDAY. CONTINUE TO ASSES CLOSELY.
--- NOTE | 2020-05-09 10:22 | NUR ---
RD TUBE FEEDING RECOMMENDATIONS: 1) REC increasing Glucerna 1.2 to Goal Rate of 60 ml/hr to meet needs. Current rate of 45 ml/hr only provides 76% energy needs, 80% protein. 2) REC replacing/rechecking K+ labs as K+ was low on 05/05 and 05/06. 3) REC obtaining mag, phos labs as well to monitor for any potential deficiencies. 4) REC standard water flushes of 30 ml q 4 hrs during continuous feeds and 30 ml before/after medications while receiving IVFs.
--- NOTE | 2020-05-09 13:38 | NUR ---
SW reviewed chart and spoke with nursing and attending physician. Pt remains in Enhanced Isolation due to COVID-19. Pt is afebrile and on 1-2L of O2. Pt is on IV abx. Plan for peg tube placement tomorrow. SW is following to assist as needed with discharge planning.
[2020-05-09 14:10] LABS: BE(vivo) -5.9 mmol/L (-2 to +3); PCO2 55.9 mmHg (35.0-45.0); PO2 82.3 mmHg (80.0-100.0); sO2 93.6 % (92.0-98.0)
[2020-05-09 14:11] LABS: pH 7.213 (7.360-7.450)
--- NOTE | 2020-05-09 14:16 | EKG ---
[facility] [place] [address] ELECTROCARDIOGRAM REPORT Name: ADI PALACIOS Room #: 359- ADM IN M.R.#: [id number] Admission: 04/29/20 Attend Phys: Flo Pierre Discharge: Date of : 47 Report #: [id number] THIS REPORT FOR: cc: JOE Hunt family physician/PCP JOE - Marilee family physician/PCP Jose Joel MD [facility] THIS REPORT FOR: //name// [facility] Test Date: 2020-05-09 Test Time: 14:06:27 Pat Name: ADI PALACIOS Department: Room: [facility] Gender: F Family Independence Case Manager: Fabrizio REDD : 1945 Requested By: Shayan Cr Order Number: [id number] MD: Jose Joel Measurements Intervals [place] Rate: 129 P: 39 GA: 123 QRS: 33 QRSD: 85 T: 48 QT: 319 QTc: 468 Interpretive Statements Sinus tachycardia Borderline T wave abnormalities Baseline wander in lead(s) V1 Compared to ECG 04/28/2020 12:45:06 Sinus rhythm no longer present Myocardial infarct finding no longer present T-wave abnormality still present Electronically Signed On 05-09-2020 14:16:51 CDT by Jose Joel [email or web address] <ELECTRONICALLY SIGNED> By: Jose Joel MD, FACC 05/09/20 141 05 05 Jose Joel MD, FACC /EPI
[2020-05-09 15:21] LABS: CALCIUM 8.3 mg/dL (8.5-10.1); CREATININE 0.7 mg/dL (0.6-1.0); POTASSIUM 4.8 mmol/L (3.5-5.1)
[2020-05-09 15:27] LABS: ALBUMIN 1.5 g/dL (3.4-5.0); TOTAL BILIRUBIN 0.3 mg/dL (0.2-1.0)
--- NOTE | 2020-05-09 15:29 | NUR ---
1350 WENT IN REPOSITION, PT WAS UNRESPONSIVE, WAS NOT WAKING UP TO STERNAL RUB AND PAINFUL STIMULI. PT VITAL SIGNS WERE STABLE, BP 106/69, HR 120, O2 SAT 89. INCREASED OXYGEN UP TO 6L. RAPID RESPONSE TEAM PAGED. DR. GIRON ON THE UNIT GAVE ORDERS FOR NARCAN. 1402 PT RECEIEVED 1IST NARCAN. PT OPENED HER EYES AFTER FEW SECONDS,BUT WAS LETHARGIC. 1405 DR[address] GIRON GAVE AN ORDER FOR A SECOND NARCAN, WHICH WAS GIVEN. GAVE ORDERS FOR ABG'S AND CHEST XRAY ABG RESULTS IN, DR. GIRON GAVE ORDERS FOR PT TO BE TRANSFERRED TO ICU. 1420 CALLED PT DAUGHTER AND UPDATED HER ABOUT PT STATUS AND PT WAS GETTING TRANSFERRED TO ICU TRANSFERRED PT TO ICU, PT OTHER DAUGHTER CALLED AND WAS UPDATED WELL.
[2020-05-09 16:47] LABS: BE(vivo) -1.6 mmol/L (-2 to +3); HCO3 23.9 mmol/L (22.0-26.0); PCO2 44.1 mmHg (35.0-45.0); PO2 110.4 mmHg (80.0-100.0); pH 7.352 (7.360-7.450); sO2 97.8 % (92.0-98.0)
--- NOTE | 2020-05-09 19:41 | NUR ---
1515 PATIENT ARRIVED TO THE ICU ROOM 240 WITH NURSE AND TECH AT BEDSIDE. PATIENT WAS MOVED TO AN ICU BED AND PLACED ON THE MONITOR. PATIENT ABLE TO OPEN EYES AND MOAN BUT IS NOT FOLLOWING COMMANDS. PATIENT WAS PLACED ON BIPAPWHEN SHE ARRIVED ON THE UNIT. PATIENT WOKE UP AND REMOVED HER MASK BY 1635, PATIENT STILL NOT FOLLOWING COMMANDS, UNSURE OF BASELINE. [address] YORK ABOUT PATIENT'S ABG RESULTS, PER DR YORK BOGDANT IS ABLE TO BE ON BIPAP PRN. PATIENT WAS PLACED ON NASAL CANNULA AT 5L. PATIENT IS TOLERATING IT WELL. NO FURTHER CONCERNS AT THIS TIME. WILL CONTINUE TO MONITOR AND CARE PER PLAN OF CARE.
--- NOTE | 2020-05-09 22:21 | NUR ---
ASSUMED CARE OF PATIEN AT 1900. BREATHIN LABORED, WHEEZY, ENCOURAGED TO COUGH. OPENS EYES BUT DOES NOT FOLLOW COMMANDS. MINIMAL URINE OUPUT. Leonora MITCHELL DNP AND DR YORK NOTIFIED. ORDERS OBTAINED TO STOP FLUIDS, LASIX ONE TIME AND CXR. SPOKE WITH DAUGHTER, SHE STATES PATIENT WEARS A LIDOCAINE PATCH AT HOME. WILL RESUME THAT IN MORNING. ATTEMPTED TO FACETIME FAMILY, HOWEVER NO ONE HAS APPLE PRODUCT. WILL SEE IF THERE IS ANOTHER MANSI AVAILABLE OR COMPATIBLE. NOT PROGRESSING TOWARDS POC GOALS.
[2020-05-10] VITALS (33 sets, daily range): BP systolic 111–157; BP diastolic 54–83
[2020-05-10 05:48] LABS: HEMATOCRIT 25.4 % (37.0-47.0); HEMOGLOBIN 7.9 gm/dL (12.0-15.0); MCH 32.4 pg (26.0-34.0); MCHC 30.9 g/dL (28.0-37.0); MCV 104.9 fL (80.0-100.0); RBC 2.43 mil/uL (4.20-5.00); RDW 19.3 % (10.5-14.5); WBC 12.6 thou/uL (4.0-11.0)
[2020-05-10 06:04] LABS: CALCIUM 8.7 mg/dL (8.5-10.1)
--- NOTE | 2020-05-10 07:44 | NUR ---
Pt TRANSFERRED TO ICU. WILL PLACE ON HOLD AND AWAIT NEW ORDERS TO RESUME WHEN APPROPRIATE
--- NOTE | 2020-05-10 13:35 | NUR ---
chart review. cm unable to visit with quintin sutherland and [facility] on ppe. came down from 3 w yesterday with rapid response. cm spoke with bedside nurse who has already contacted brenna pantoja with updates for today. she still requiring oxygen. not anticipated dc over the weekend, will cont following as needed for dc needs.
--- NOTE | 2020-05-10 20:00 | NUR ---
ASSUMED CARE AT 1200. PATIENT AFEBRILE. FMS IN PLACE WITH MODERATE OUTPUT. ADEQUATE UOP. PATIENT ON 5 L BY NASAL CANNULA. BIPAP PRN. GLUCERNA 1.[address] AT 30 ML/HR. PATIENT'S DAUGHTER UPDATED AND EDUCATED ON PATIENT CONDITION AND PLAN OF CARE AT 1215. DOBHOFF IN PLACE. PATIENT SLOWLY PROGRESSING TOWARDS THE PLAN OF CARE.
--- NOTE | 2020-05-10 20:03 | NUR ---
ASSUMED CARE AT 0700, ALERT TO SELF. REPORT WAS GIVEN TO KJ PABLO AT 1200.
[2020-05-11] VITALS (25 sets, daily range): BP systolic 154–181; BP diastolic 73–99
--- NOTE | 2020-05-11 03:07 | NUR ---
Pt pulled feeding tube out. After 3 attempts of reinserting feeding tube, unsuccessful and pt's HR in the 140-150s and had a nose bleed. nose bleed under control. Feed stopped at this point. Continue with monitor.
[2020-05-11 06:53] LABS: HEMATOCRIT 23.8 % (37.0-47.0); HEMOGLOBIN 7.7 gm/dL (12.0-15.0); MCH 33.3 pg (26.0-34.0); MCHC 32.1 g/dL (28.0-37.0); MCV 103.5 fL (80.0-100.0); RBC 2.3 mil/uL (4.20-5.00); RDW 18.6 % (10.5-14.5); WBC 15.2 thou/uL (4.0-11.0)
[2020-05-11 07:02] LABS: CREATININE 1.2 mg/dL (0.6-1.0); POTASSIUM 3.6 mmol/L (3.5-5.1)
[2020-05-11 10:32] LABS: BE(vivo) 1.1 mmol/L (-2 to +3); HCO3 25.2 mmol/L (22.0-26.0); PCO2 38.1 mmHg (35.0-45.0); PO2 54.8 mmHg (80.0-100.0); pH 7.439 (7.360-7.450); sO2 89.7 % (92.0-98.0)
--- NOTE | 2020-05-11 19:51 | NUR ---
PT ALERT AND ORIENTED TIMES THREE, WITH PERIODS OF CONFUSION. BP ELELVATED DR AWARE. OTHER VSS, BOLIVAR AND FMF TO DD. SR ON TELE. PT REFUSED TO HAVE MELANI REPLACED DR CHAVEZ AND STATED TO TRY PT ON CLEAR LIQUIDS...SMALL SIPS OF WATER GIVEN. PT TOLERATED WELL. SPOKE WITH PT DAUGHTER THREE TIMES THIS SHIFT TO UPDATE ON CARE. PT SLOWLY PROGRESSING TOWRADS POC GOALS.
[2020-05-12] VITALS (43 sets, daily range): BP systolic 129–199; BP diastolic 63–124
[2020-05-12 03:57] LABS: BE(vivo) -0.9 mmol/L (-2 to +3); HCO3 23.5 mmol/L (22.0-26.0); PCO2 37.9 mmHg (35.0-45.0); PO2 74.2 mmHg (80.0-100.0); sO2 95.1 % (92.0-98.0)
--- NOTE | 2020-05-12 04:05 | NUR ---
ASSESSMENT: PT REMAIN ALERT AND ORIENT TIMES 2-3. ACCORDING TO OTHER RN'S PT SEEMS TO BE MORE ALERT AND ORIENT COMPARED TO PREVIOUS SHIFTS. PT REFUSED TO HAVE DH REPLACED DR. ROB IS AWARE OF SUCH. PEG TUBE PLACEMENT IS PENDING. PT TOLERATING SMALL SIPS OF CL LIQUIDS. BOLIVAR PATENT WITH ADEQUATE AMTS OF URINE. FECAL MANAGEMENT SYSTEM INTACT WITH SEMI-LIQUID, BROWNISH STOOL. BIPAP IS PRN, PT DID NOT GET ON BIPAP THIS SHIFT. ABG'S DRAWN THIS AM, RESULTS POSTED. NO CRITICAL LABS TO REPORT. SPOKE WITH PT'S DAUGHTER, BRONSON, FOR AN UPDATE OF PT'S CONDITION. VSS, AFEBRILE. SWALLOW EVAL SCHEDULED FOR WEDNESDAY PER ORDERS. SR-ST PER MONITOR. SLOW PROGRESS TOWARDS DC GOALS. WILL CONTINUE TO MONITOR.
[2020-05-12 06:23] LABS: HEMATOCRIT 24.4 % (37.0-47.0); HEMOGLOBIN 7.6 gm/dL (12.0-15.0); MCH 32.4 pg (26.0-34.0); MCHC 31.1 g/dL (28.0-37.0); MCV 104.1 fL (80.0-100.0); PLATELET COUNT 234 thou/uL (150-400); RBC 2.35 mil/uL (4.20-5.00); RDW 19.1 % (10.5-14.5); WBC 12.3 thou/uL (4.0-11.0)
[2020-05-12 06:42] LABS: ALBUMIN 1.7 g/dL (3.4-5.0); CALCIUM 8.6 mg/dL (8.5-10.1); POTASSIUM 3.4 mmol/L (3.5-5.1); TOTAL BILIRUBIN 0.4 mg/dL (0.2-1.0); TOTAL PROTEIN 5.1 g/dL (6.4-8.2)
[2020-05-12 07:03] LABS: ABSOLUTE NEUTROPHILS 11.1 thou/uL (1.4-8.2); NUCLEATED RBCS 1 /100WBC; PLATELET ESTIMATE NORMAL
[2020-05-12 07:04] LABS: ANISOCYTOSIS 2+; MACROCYTES 1+
--- NOTE | 2020-05-12 20:28 | NUR ---
ASSUMMED PT CARE AT APPROXIMATELY 0700. PT A&O X2 AND DROWSY THROUGHOUT SHIFT. FREQUENT REORIENTATION PROVIDED. ASSESSMENT CHARTED. FALL PRECAUTIONS IN PLACE. PT DENIES HAVING CHEST PAIN. PT DENIES HAVING SOB. PT STATED HER EYE HURT. PT RECIEVED EYE DROPS. PT STATED PAIN WAS RELIEVED. PER DR. ROB AND DR. ANDREWS, I RECEIVED ORDER TO NOT INSERT NEW DOBHOFF AND TO WAIT UNTIL PT HAS SPEECH LANGUAGE EVAL TOMORROW. PT STARTED HAVING ELEVATED BP IN MORNING. INFORMED DR. ROB. NEW ORDERS RECEIVED AND IMPLEMENTED. MONITORING BP. VITAL SIGNS STABLE. BLOOD SUGARS STABLE. PT COMFORTABLE IN BED. EDUCATED PT FAMILY MEMBER ABOUT POC. FAMILY MEMBER STATED UNDERSTANDING C NO FURTHER QUESTIONS. PT DENIES HAVING FURTHER CONCERNS.
--- NOTE | 2020-05-12 21:15 | NUR ---
2114- Nurse updated patients daughter, Rebecca, on patient status and current treatments, as well as plan of care. Then nurse entered room to give evening medications and call patients daughter, Rebecca, so she can talk to patient. Nurse was able to hold the phone for the patient while her daughter talked with her. Patient fell asleep intermittently while on the phone, in which nurse interviened and made sure Rebecca knew patient fell asleep. She then prayed with Rudy and then after talking with RN, disconnected. Nurse expressed to Rebecca if she has any further questions or wants to check up on Rudy, to call back and nurse will be available to talk.
[2020-05-13] VITALS (45 sets, daily range): BP systolic 107–172; BP diastolic 44–93
--- NOTE | 2020-05-13 02:36 | NUR ---
Patient intermittently awake throughout the night. She goes through periods, not sustained of more rapid breathing, then more normal breathing. The rapid periods of breath with respiratory rate in the upper 20's-30's is accompanied with a course, productive cough. She then clears her throat and goes back to sleep. Nurse has attempted to use yanker, however, she says she swallows what she coughs up. She asked for a bath, which was given. Output has been 50ml-100ml/hour. Fecal management noted with stool in tubing. She has denied pain. Nurse to continue to monitor patient status.
--- NOTE | 2020-05-13 09:16 | NUR ---
SPEECH THERAPY AT BEDSIDE AT 0915. THEY WILL DO A BEDSIDE SPEECH EVAL AND DETERMINE IF PT IS APPROPRITE FOR A VIDEO SWALLOW. SHE WILL BE THE LAST CASE OF THE DAY DUE TO HER COVID +. WILL CONTINUE TO MONITOR.
[2020-05-13 09:43] LABS: CALCIUM 8.5 mg/dL (8.5-10.1); CREATININE 0.8 mg/dL (0.6-1.0)
[2020-05-13 09:45] LABS: POTASSIUM 2.7 mmol/L (3.5-5.1)
--- NOTE | 2020-05-13 13:48 | NUR ---
chart review, pt to have [facility] video swallow, peg tube on hold. on o2 2 L/nc. cm spoke with daughter kit, spoke with nurse already telling me going possible get peg tube tomorrow, concerns about abd hurts on right side so everything goes ok with old scars and placement of feeding tube, does she need stress test before, no more complication. cm passed on intromation to bedside nurse.
--- NOTE | 2020-05-13 21:16 | NUR ---
DAUGHTER MARTY CALLED TO SPEAK TO PATIENT, WAS UNABLE TO FIND PHONE IN ROOM AT THAT TIME. FOUND PHONE WHICH WAS NOT WORKING, TROUBLESHOOTED, AND CALLED DAUGHTER BACK ON PHONE IN ROOM SO DAUGHTER COULD SPEAK TO PATIENT. ALL QUESTIONS ANSWERED AND DAUGHTER APPEARS TO BE SATISFIED.
[2020-05-14] VITALS (23 sets, daily range): BP systolic 139–168; BP diastolic 65–100
[2020-05-14 05:04] LABS: HEMATOCRIT 26.7 % (37.0-47.0); HEMOGLOBIN 8.5 gm/dL (12.0-15.0); MCHC 31.7 g/dL (28.0-37.0); MCV 104.2 fL (80.0-100.0); RBC 2.56 mil/uL (4.20-5.00); RDW 19.2 % (10.5-14.5); WBC 14.8 thou/uL (4.0-11.0)
--- NOTE | 2020-05-14 06:17 | NUR ---
ORIENTED TO PERSON AND PLACE, OCCASIONALLY DIFFICULT TO UNDERSTAND, PLEASANT AND COOPERATIVE, DENIES PAIN, FOLLOWS COMMANDS, RESTING WELL THROUGHOUT NIGHT.
[2020-05-14 07:57] LABS: CREATININE 1.1 mg/dL (0.6-1.0); MAGNESIUM 2.1 mg/dL (1.8-2.4)
[2020-05-14 08:00] LABS: POTASSIUM 2.9 mmol/L (3.5-5.1)
--- NOTE | 2020-05-14 14:50 | NUR ---
PT TAKEN TO OR FOR PEG TUBE PLACEMENT AT 1445 BY GI STAFF. VSS AT TIME OF TRANSPORT. PT DENIED ANY NEEDS AT THAT TIME.
--- NOTE | 2020-05-14 16:24 | NUR ---
PT ARRIVED FROM OR AT 1620 ACCOMPANIED BY OR STAFF. PT VSS. PT ON NRB. PT DROWSY ON ARRIVAL. PT TITRATED OFF OF NRB TO 3 L NC. PT DOES VERBALIZE "MY THROAT IS HURTING" BUT FALLS ASLEEP WITH EASE AT THIS TIME. WILL CONTINUE TO MONITOR.
[2020-05-15 01:04] VITALS: BP 154/77
[2020-05-15 04:25] VITALS: BP 142/85
--- NOTE | 2020-05-15 06:13 | NUR ---
PATIENT RESTING QUIETLY MOST OF NIGHT, WAKES EASILY, FOLLOWS COMMANDS AND IS ORIENTED TO PERSON AND PLACE. DENIES PAIN. SEVERAL BM, LOOSE/MUCUS. DAUGHTER SPOKE WITH PT AND THIS RN APPROXIMATELY 2100. ALL QUESTIONS ANSWERED. TRANSFERREED TO 3W, REPORT CALLED AND CARE SURRENDERED, WILL CALL BENITA WITH UPDATE
--- NOTE | 2020-05-15 06:47 | NUR ---
PT TRANSFERRED TO THE UNIT AT THIS TIME. REPORT GIVEN TO THIS RN FOR MANUELA ICU POD #1. VSS, SR-SA PER MONITOR. PEG TUBE INTACT WITH ABD COVERING IT. CENTRAL SERVICES TO BRING ABD BINDER. WILL PAST REPORT ON TO RN BYRON SHARPE AM.
[2020-05-15 08:30] VITALS: BP 149/82
[2020-05-15 08:36] LABS: CALCIUM 8.8 mg/dL (8.5-10.1); CREATININE 0.9 mg/dL (0.6-1.0)
[2020-05-15 08:42] LABS: POTASSIUM 2.7 mmol/L (3.5-5.1)
--- NOTE | 2020-05-15 10:21 | NUR ---
When ready to use PEG, suggest glucerna 1.2 at new goal of 60ml/hr. When ivf discontinued, recommend start 150ml water flushes every 6hr unless physician orders differently.
--- NOTE | 2020-05-15 12:42 | P ---
[facility] [place] [address] [place] [address] PROCEDURE REPORT Name: ADI PALACIOS Room #: 354-P [facility] IN M.R.#: [id number] Admission: 04/29/20 Attend Phys: Flo Pierre Discharge: Date of : 47 Report #: [id number] THIS REPORT FOR: cc: JOE - Marilee family physician/PCP JOE - Marilee family physician/PCP Mauricio Kilgore MD ~ CC: Dr. Wendie DIAZ physician/PCP Christopher Pierre DATE OF SERVICE: 05/14/2020 PROCEDURE PERFORMED: Upper endoscopy with PEG tube placement. HISTORY OF PRESENT ILLNESS: The patient is a 75-year-old female with previous history of CVA, had a PEG tube at one time, actually this was removed several months ago and the patient was tolerating her diet. She has been hospitalized, COVID positive and has been receiving tube feeds per Dobhoff, but the patient has pulled it out. She then underwent a video swallow, but failed video swallow. The plan is for repeat PEG tube placement. DESCRIPTION OF PROCEDURE: The risks and benefits of the procedure were explained to the patient's family, those risks including, but not limited to bleeding, perforation, the risk of sedation as well as potential risk of infection. They understood these risks and gave informed consent. The procedure was performed in the operating room using propofol. The patient is already on IV Zosyn q. 8 hours at this time. Next, using a standard Olympus upper endoscope, the scope was placed in the patient's mouth and advanced under direct vision through the esophagus, stomach and into the second portion of the duodenum. The esophagus was normal throughout. The GE junction was normal. Overall, the gastric mucosa was normal. The previous PEG tube scar in the mid body of the stomach was noted. Good transillumination was noted around this area. The gastric antrum was normal. The pylorus was normal and patent. The duodenal bulb, first and second portion were all normal. The scope was then brought back up into the patient's stomach and the stomach was fully insufflated with air. Again, good transillumination was noted through the anterior abdominal wall. This area was then marked and cleaned with chlorhexidine solution and a sterile drape was put in place. Next, Xylocaine was used as a local anesthetic. Next, using a seeker needle, the needle was advanced through the anterior abdominal wall under direct vision into the gastric lumen without difficulty. The needle was removed. Next, a small 1 cm transverse incision was made through the skin. Next, using a catheter needle, this was advanced through the mid portion of the incision again into the gastric lumen under direct vision without difficulty. The needle was removed. The catheter remained in place. [facility] [address] [place] [address] PROCEDURE REPORT Name: ADI PALACIOS Room #: 354-P [facility] IN M.R.#: [id number] Admission: 04/29/20 Attend Phys: Flo Pierre Discharge: Date of : 47 Report #: [id number] Next, a blue guidewire was advanced through the catheter. This was grasped with a snare through the endoscope and then brought back up through the patient's mouth. Next, a 20-Andorran PEG tube was then secured to the blue guidewire and using a pull technique, was put into position without difficulty. Next, the scope was reintroduced into the patient's mouth and into the stomach. The PEG tube bumper was noted to be in good position in the mid body of the stomach. The scope was then withdrawn. Next, the PEG tube was then secured to the anterior abdominal wall. The procedure terminated. The patient tolerated the procedure well. IMPRESSION: 1. Normal upper endoscopy. 2. Status post PEG tube insertion as described above. RECOMMENDATIONS: We will start using PEG tube tomorrow. Thank you for allowing me to participate in her care. <ELECTRONICALLY SIGNED> By: Mauricio Kilgore MD 05/15/20 1242 [id number] [id number] Mauricio Kilgore MD /nt
[2020-05-15 15:00] VITALS: BP 156/103
--- NOTE | 2020-05-15 15:58 | NUR ---
FIDELIA reviewed chart and spoke with nursing and attending physician. Pt remains in Enhanced Isolation due to COVID-19. Pt was transferred to from ICU. Pt had peg tube placed yesterday. Pt is afebrile and on 2L of O2. Pt is on IV abx and IV steroids. Pt to start tube feedings today. Anticipate discharge home with HH and home tube feeding soon. SW requested new therapy evals from attending physician. Attending physician spoke with pt's dtr, Rebecca, earlier today about discharge plans. Pt's family would like pt to return home with HH. Pt's family does not want pt to go to post-acute care facility. SW spoke with pt's dtr, Rebecca, via phone. Pt's dtr is familiar with managing peg tube at home. SW provided options for DME/HH agencies. No preference voiced. Pt's dtr states they had a negative experience with [facility] and would not want to use them again. SW confirmed pt's home address and phone number. Pt has been using [facility] for Medicaid in-home care: 5 hours/day. FIDELIA spoke with intake at [facility], who state they are also able to provide HH therapy services. FIDELIA faxed HH referral for review. Faxed referral to [facility] for home tube feeding. Notified [facility] liaison, Shante, of new referral. FIDELIA received call from JOSE Davis with [facility], who is requesting ST eval. FIDELIA faxed info. FIDELIA is following to assist as needed with discharge planning.
[2020-05-15 19:40] VITALS: BP 136/87
--- NOTE | 2020-05-15 20:23 | NUR ---
ASSUMED CARE APPROX 0700. PT ALERT AND CONFUSED. ASSESSMENTS CHARTED AND VSS. PT'S TF'S BEGAN THIS SHIFT AT 30ML/HR AND PT TOLERATED. TO BE TITRATED UP ON NOC SHIFT. POTASSIUM LOW AND REPLACED X2 THIS SHIFT. SR TO ST ON TELE MONITOR. COVID SWAB SENT TO LAB. RESULTS PENDING. PT SLOWLY PROGRESSING TOWARDS PLAN OF CARE GOALS.
[2020-05-16 04:28] VITALS: BP 161/85
--- NOTE | 2020-05-16 05:48 | NUR ---
ASSUMED CARE AT 1900, ASSESSMENT COMPLETED. PT ALERT TO SELF AND PLACE, ANSWERING WITH SINGLE WORDS. DENIES PAIN OR NAUSEA. PEG TUBE HAS NO RESIDUAL OVERNIGHT, INCREASED TUBE FEED TO 40 ML/HR AT MIDNIGHT. MULTIPLE LOOSE, LIQUID STOOLS OVERNIGHT. Q2 TURNS, KEEPING ARMS ELEVATED TO REDUCE EDEMA. NO OTHER CONCERNS, WILL CONTINUE TO MONITOR.
[2020-05-16 06:33] LABS: CALCIUM 8.8 mg/dL (8.5-10.1); POTASSIUM 3.6 mmol/L (3.5-5.1)
[2020-05-16 07:44] VITALS: BP 141/77
[2020-05-16 15:17] VITALS: BP 183/95
--- NOTE | 2020-05-16 16:01 | NUR ---
FIDELIA reviewed chart and spoke with nursing and attending physician. Pt remains in Enhanced Isolation due to COVID-19. Pt is afebrile and not requiring O2. Pt is on IV abx and IV steroids. Tube feeding being advanced today to goal rate. Discharge home is anticipated in 1-2 days. FIDELIA spoke with intake at [facility], who state they are able to accept pt on service and they are able to provide RN and therapy services in addition to pt's in-home Medicaid services. FIDELIA faxed signed ppwk to [facility] for tube feeding supplies. Notified of anticipated discharge timeframe. FIDELIA spoke with pt's dtr, Rebecca, to provide update and discuss discharge plan. Rebecca verbalized understanding and would like to have education on the tube feeding. FIDELIA spoke with JOSE Davis at [facility], who will contact Rebecca to arrange education. Pt's family state they would like to provide transportation home. FIDELIA is following to assist as needed with discharge planning.
--- NOTE | 2020-05-16 16:30 | NUR ---
ASSUMED CARE APPROX 0700. PT ALERT AND ORIENTED X1 TO SELF. PT CONFUSED. ASSESSMENT CHARTED AND VSS. PT'S BP STABLE TODAY, BUT ELEVATED FOR 1500 VITALS. PT AFEBRILE THIS SHIFT. PT TOLERATING TF'S WELL. PT'S DTR, BRONSON, UPDATED ON STATUS. POSSIBLE D/C TOMORROW W/ HH DEPENDENT UPON CORRECTION OF LOOSE STOOLS. PT ON ROOM AIR W/O DISTRESS NOTED. PT SLOWLY PROGRESSING TOWARDS PLAN OF CARE GOALS.
[2020-05-16 21:19] VITALS: BP 151/75
--- NOTE | 2020-05-17 03:49 | NUR ---
ASSUMED CARE AT 1900, ASSESSMENT COMPLETED. PT DENIES NAUSEA OR PAIN. NO RESIDUAL FROM PEG TUBE; INCREASED TO GOAL RATE AT 0030. TWO MEDIUM LOOSE STOOLS OVERNIGHT. URINE LEAKING AROUND BOLIVAR, LARGE AMOUNTS; AT MIDNIGHT, FLUSHED BOLIVAR WITH ABOUT 100 ML OF SALINE, LIGHT GREEN/YELLOW URINE OUT WITH SEDIMENT PRESENT, NO BLOOD OR CLOTS NOTED. AFTER FLUSHING BOLIVAR, IT STARTED TO DRAIN MUCH BETTER. SPOKE WITH PT'S DAUGHTER THIS AM AND HELPED HER SPEAK WITH PT ON ROOM PHONE. BRONSON EXPRESSED SOME CONCERNS ABOUT PT'S DISCHARGE. ASKED ABOUT HER RHEUMATOID ARTHRITIS MEDICATIONS, ESPECIALLY HER REMICAIDE INJECTION WHICH SHE USALLY HAS EVERY 3-4 WEEKS; THE LAST DOSE WAS DUE April, AND SHE IS CONCERNED ABOUT HER MOTHER HAVING A LOT OF PAIN AND DECREASED HAND MOVEMENT. SHE ALSO ASKED IF HER MOTHER SHOULD HAVE A SHINGLES VACCINE SINCE SHE HAD SHINGLES ON HER FACE/AROUND EYE THREE YEARS AGO. WOULD LIKE THE DOCTOR AND/OR PARK WORKER TO TALK WITH HER TODAY.
[2020-05-17 04:35] VITALS: BP 146/66
[2020-05-17 08:21] VITALS: BP 166/78
[2020-05-17 08:37] LABS: HEMATOCRIT 27.4 % (37.0-47.0); HEMOGLOBIN 8.6 gm/dL (12.0-15.0); MCHC 31.3 g/dL (28.0-37.0); MCV 105.6 fL (80.0-100.0); RBC 2.6 mil/uL (4.20-5.00); RDW 20.6 % (10.5-14.5); WBC 18.4 thou/uL (4.0-11.0)
--- NOTE | 2020-05-17 14:43 | NUR ---
PT CARE ASSUMED AT 0700, PT ALERT AND ORIENTED X4, FORGETFUL AT TIMES AND SLEEPY. PT DENIES ANY PAIN, NUMBNESS AND TINGLING. PT IS ON ROOM AIR, NO SIGNS OF DISTRESS NOTED. PT PEGTUBE IN PLACE, TUBE FEEDING RUNNING PER ORDER. BOLIVAR IN PLACE AND SECURED. PT REPOSITIONED EVERY 2 HOURS. FAMILY CALLED AND UPDATED ABOUT PT CARE. FALL PRECAUTIONS IN PLACE. WILL CONTINUE TO MONITOR.
[2020-05-17 15:59] VITALS: BP 131/68
[2020-05-17 16:06] VITALS: BP 131/68
--- NOTE | 2020-05-17 16:19 | NUR ---
ON-GOING ASSESSMENT: JENNIFER REVIEWED CHART AND SPOKE WITH PATIENTS DAUGHTER BRONSON. PT IS TO CONTINUE IV ANBX AND LIKELY STOP IT TOMORROW. POSSIBLE DISCHARGE HOME WITH [facility] OVER THE WEEKEND. IF PATIENT IS STABLE TO DISCHARGE CONTACT [facility] AND NOTIFY THEM OF DISCHARGE AT [phone] AND FAX DISCHARGE ORDERS TO THEM AT [phone]. JENNIFER NOTIFIED THEM OF LIKELY DISCHARGE THIS WEEKEND. JENNIFER ALSO SPOKE WITH PATIENTS DAUGHTER BRONSON WHO STATES THAT [facility] CAME AND DID THE EDUCATION WITH HER FOR PATIENTS TUBE FEEDS AND DELIVERED A WEEKS WORTH OF SUPPLIES. BRONSON STATES THEY ARE COMFORTABLE ASSISTING WITH TUBE FEEDS AFTER THE EDUCATION. JENNIFER SPOKE WITH JUAN DANIEL AT [facility] AND CONFIRMED THE TEACHING WENT WELL AND SHE REPORTS THEY DO NOT NEED ANY OTHER PAPERWORK AT THIS TIME. ONCE PATIENT DISCHARGES FAX THE DISCHARGE ORDERS TO THEM AT FAX [phone]. BRONSON STATES ONCE PATIENT IS STABLE TO LEAVE SHE WILL PROVIDE THE TRANSPORTATION FOR THE PATIENT. SHE ALSO REQUEST TO SPEAK TO THE ATTENDING TO HAVE SOME OF HER QUESTIONS ANSWERED. JENNIFER NOTIFIED DR. JONES TO PLEASE CONTACT BRONSON AND PROVIDED HIM WITH HER CONTACT NUMBER.
[2020-05-17 19:55] VITALS: BP 148/70
[2020-05-18 05:32] VITALS: BP 160/70
--- NOTE | 2020-05-18 05:37 | NUR ---
O2 SAT 93 % ON ROOM AIR THIS AM. LARGE LIQUID BM, GAVE IMMODIUM. NOT INDICATED FOR INSULIN THIS AM BG 101. DTR CALLED TONIGHT. RESTING QUIELTY.
[2020-05-18 07:35] VITALS: BP 167/73
--- NOTE | 2020-05-18 15:27 | NUR ---
Received awake on
--- NOTE | 2020-05-18 15:28 | NUR ---
Received awake on bed. Due medications given as prescribed, crushed and given thru PEG. On room air. Vital signs stable. On MS, not on telemetry; no complains and signs of chest pain, crushing sensation and heaviness. With PEG tube in place- TF of Glucerna at 60ml/hr, water flushes done every 6 hrs; no residual noted. Mouth care done, lip moisturizer applied. On blood sugar monitoring, taken and recored accordingly. With good in place- output measured and recorded accordingly; barbara care done; Z guard applied, pt turned to her sides. Incontinent of bowel- able to have a bowel movement today- charted. With SL at R UA, L AC, L UA- intact- on Iv antibiotics. Still with noted weakness, assisted in ADLs. Falls bundle in place. With generalized edema, extremities elevated. No nausea, no vomiting and no abdominal pain noted. To continue monitoring patient.
[2020-05-18 15:54] VITALS: BP 154/83
[2020-05-18 21:39] VITALS: BP 169/90
[2020-05-19 05:14] VITALS: BP 157/75
[2020-05-19 07:39] VITALS: BP 156/85
[2020-05-19 15:28] VITALS: BP 158/81
--- NOTE | 2020-05-19 16:56 | NUR ---
PT A&OX2 LESS SITUATION AND TIME, VSS, DENIES PAIN. PATIENT SLEPT THROUGHOUT DAY. FAMILY CALLED TO SPEAK WITH PATIENT BUT PATIENT MORE SLEEPY TODAY. PATIENT NPO, HAS FEEDING TUBE WITH FEEDING AT 60ML/HR. DRESSING AROUND TUBE C/D/I. PATIENT GET 150 FLUID BOLUS Q6HR. MEDS CRUSHED AND GIVEN THROUGH FEEDING TUBE. PATIENT HAS LAC, L UPPER ARM, AND RAC IVS. PATIENT HAD ONE LOOSE STOOL, JOHNSON CARE, ZGAURD GIVEN. PATIENT TURNED TODAY. PATIENTS HEAD OF BED ELEVATED D/T FEEDINGS. PATIENT HAS A CONGESTED COUGH. ARMS ARE EDEMATIOUS AND ELEVATED ON PILLOWS. NO SIGNS OF DISTRESS. WILL CONTINUE TO MONITOR.
[2020-05-19 19:29] VITALS: BP 119/79
[2020-05-19 20:32] VITALS: BP 170/83
[2020-05-20 00:32] VITALS: BP 150/84
--- NOTE | 2020-05-20 02:34 | NUR ---
PT ALERT AND ORIENTED X1. VERBALIZES RARELY. BP MODERATELY ELEVATED. SEE VS. METOPROLOL GIVEN ORDERED. BP BETTER. RESIDUALS WNL. TF INFUSING WITHOUT DIFFICULTY. PT INC OF STOOL IN LG AMTS. MOISTURE BARRIER APPLIED . TURNING PT Q 2 HRS. BED DOWN. CALL LIGHT IN REACH. BED ALARM IS ON.
[2020-05-20 05:20] VITALS: BP 154/82
[2020-05-20 08:30] VITALS: BP 155/93
--- NOTE | 2020-05-20 15:57 | NUR ---
FIDELIA reviewed chart and spoke with nursing and attending physician. Pt remains in Enhanced Isolation due to COVID-19. Pt remains on IV abx. Awaiting clearance from [facility] for discharge. Pt will discharge home with [facility] and [facility] for tube feeding equipment and supplies. Awaiting final discharge orders at this time. Finalized discharge orders summary will need to faxed to [facility] and when available. Pt's family will provide transportation home. Contact in for HH and [facility] placed in pt's discharge summary. SW placed call to pt's dtr, Rebecca, to provide update. Voice mailbox is full. Unable to leave voice message. FIDELIA is following to assist as needed with discharge planning.
--- NOTE | 2020-05-20 16:41 | NUR ---
ASSUMED CARE APPROX 0700. PT ALERT AND ORIENTED TO SELF AND PLACE. ASSESSMENT CHARTED AND VSS. PT AFEBRILE THIS SHIFT. ON ROOM AIR W/O SIGNS OF DISTRESS NOTED. ID TO SIGN OFF ON PT BEFORE D/C. STILL ON IV ANTIBIOTICS AND WILL NEED TO BE CHANGED TO PO. DTRS UPDATED ON PT'S STATUS. PT DENIES PAIN. STILL W/ LIQUID STOOL. PT SLOWLY PROGRESSING TOWARDS POC GOALS.
[2020-05-20 17:21] VITALS: BP 178/80
[2020-05-20 19:41] VITALS: BP 160/95
[2020-05-21 03:30] VITALS: BP 160/80
--- NOTE | 2020-05-21 04:22 | NUR ---
PT OPENS EYES TO TOUCH. SAYS YES OR NO. BP ELEVATED AND PULSE 130. ,ETOPROLOL GIVEN IV. BP AND PULSE BETTER AFTER . TEMP 101.1 NOTIFIED PRODUCT SUPPORT TECHNICIAN, TYLENOL GIVEN ORDERED. CBC ORDERED THIS AM TO F/U WITH ELEVATED WBC. LOMOTIL GIVEN FOR LOOSE STOOL. ZGARD APPLIED TO BOTTOM.
[2020-05-21 04:26] VITALS: BP 146/86
[2020-05-21 06:18] LABS: HEMATOCRIT 27.8 % (37.0-47.0); HEMOGLOBIN 8.6 gm/dL (12.0-15.0); RDW 20.8 % (10.5-14.5)
[2020-05-21 06:20] LABS: MCH 33.3 pg (26.0-34.0); MCHC 31.1 g/dL (28.0-37.0); MCV 107.1 fL (80.0-100.0); PLATELET COUNT 252 thou/uL (150-400); WBC 21.6 thou/uL (4.0-11.0)
--- NOTE | 2020-05-21 06:58 | NUR ---
Notified day rodolfo tobar pt 's daughter wanted dr to see her mothers hemmorhoids prior to d/c.
[2020-05-21 07:30] VITALS: BP 122/57
[2020-05-21 09:33] LABS: ABSOLUTE NEUTROPHILS 16.8 thou/uL (1.4-8.2); ANISOCYTOSIS 2+; MACROCYTES 2+; NUCLEATED RBCS 1 /100WBC; PLATELET ESTIMATE NORMAL
[2020-05-21 10:53] VITALS: BP 108/48
[2020-05-21 15:24] VITALS: BP 125/64
--- NOTE | 2020-05-21 16:32 | NUR ---
SW reviewed chart and spoke with nursing and attending physician. Pt remains in Enhanced Isolation due to COVID-19. Pt febrile and WBC is 21. Pt not ready for discharge today. Plan is for pt to discharge home with [facility] for home tube feeding supplies when medically stable. FIDELIA is following to assist as needed with discharge planning.
--- NOTE | 2020-05-21 18:45 | NUR ---
ASSUMED PATIENT CARE AT 0700. AWAKE. NONE VERBLE IN AM. FACE TIME WITH FAMILY AT 1800. PATIENT ABLE TO TALK A FEW WORKS. STEPHANIE TEMP IN AM. 2L/NC 02 OFFERED. VSS NOW. INSERTED FMS DUE TO LIQUID STOOL. SUCTION NEED. NOT TOWARD POC GOALS.
[2020-05-21 18:48] LABS: URINE BILIRUBIN NEGATIVE (Negative); URINE BLOOD 3+ (Negative); URINE CLARITY CLEAR; URINE COLOR YELLOW; URINE GLUCOSE-RANDOM* NEGATIVE (Negative); URINE KETONES TRACE (Negative); URINE LEUKOCYTES-REFLEX 2+ (Negative); URINE NITRITE-REFLEX NEGATIVE (Negative); URINE PROTEIN (DIPSTICK) 2+ (Negative); URINE SPECIFIC GRAVITY 1.015 (1.005-1.035); URINE UROBILINOGEN 0.2 E.U./dl (0.2-1.0)
[2020-05-21 18:51] LABS: CASTS None Seen /LPF (None Seen); SQUAMOUS 0-3 Few /LPF (0-3); YEAST-REFLEX Present (None Seen)
[2020-05-21 18:52] LABS: BACTERIA-REFLEX 1-9 Few /HPF (None Seen); CRYSTALS None Seen /LPF (None Seen); URINE RBC 3-10 Few /HPF (0-2)
[2020-05-21 18:54] LABS: URINE WBC-REFLEX 6-15 Few /HPF (0-5)
[2020-05-21 20:44] VITALS: BP 130/73
--- NOTE | 2020-05-22 05:13 | NUR ---
PT AROUSABLE, BUT SLEPT MOST OF SHIFT. Q2 TURNS AND FOLLOWING POC WITH IVPB ANTIBIOTICS FOR UTI. BOLIVAR AND FECAL MANAGEMENT SYSTEM IN PLACE. TELE SHOWS SR WITH PAC'S. FALL AND ISOLATION PRECAUTIONS IN PLACE.
[2020-05-22 05:57] VITALS: BP 128/54
--- NOTE | 2020-05-22 14:46 | NUR ---
ASSUMED CARE @ 1130 , PT ASSESSMENTS AND VSS COMPLETE PER MS STATUS. BRONSON CALLED @ 1317, CODE VERIFIED AND UPDATE ON PT'S STATUS GIVEN.
--- NOTE | 2020-05-22 16:19 | NUR ---
ON-GOING ASSESSMENT: CM REVIEWED CHART. PT REMAINS ON 2L OXYGEN. CM REACHED OUT TO PATIENTS DAUGHTER BRONSON WHO PT WILL BE STAYING WITH AT DISCHARGE. BRONSON STATES SHE UNDERSTANDS THE RECOMMENDATION FOR 24/ SUPERVISION AND REPORTS SHE IS THERE AT ALL TIMES. PLANS ARE TO DISCHARGE HOME WITH HH AND POSSIBLE NEED OF OXYGEN THROUGH [facility] AT DISCHARGE. CM WILL CONTINUE TO FOLLOW.
[2020-05-22 16:20] VITALS: BP 148/60
[2020-05-22 19:25] VITALS: BP 135/56
[2020-05-22 21:46] LABS: CALCIUM 8.8 mg/dL (8.5-10.1); CREATININE 1.1 mg/dL (0.6-1.0); MAGNESIUM 1.7 mg/dL (1.8-2.4)
[2020-05-22 22:16] LABS: POTASSIUM 5.4 mmol/L (3.5-5.1)
[2020-05-23 04:26] VITALS: BP 142/75
--- NOTE | 2020-05-23 04:57 | NUR ---
ASSESSMENT: PT REMAIN ALERT AND ORIENT TIMES ONE. FEBRILE MAX 101.5, TYLENOL GIVEN. DR. RITTER NOTIFIED OF SUCH. BUTADIENE CONVERTER OPERATOR HAS TRIED SEVERAL TIMES AND 2 DAYS TO DRAW LAB FROM PT; PT IS VERY EDEMATOUS WITH SEROUS FLUIDS. ED CHARGE NURSE WAS NOTIFIED OF ASSISTANCE WITH IJ OR LAB DRAW. WAS TOLD THAT SHE WOULD SEND SOMEONE. VANCOMYCIN WAS NOT GIVEN DUE TO AFOREMENTION. DR. RITTER WILL BE NOTIFIED OF SUCH. SPUTUM PENDING. ST PER MONITOR. PEG TUBE INTACT/PATENT. TOLERATING TF. POOR PROGRESS TOWARDS DC GOALS, WILL CONTINUE TO MONITOR.
[2020-05-23 07:37] VITALS: BP 151/78
[2020-05-23 08:29] LABS: HEMATOCRIT 25.8 % (37.0-47.0); HEMOGLOBIN 7.8 gm/dL (12.0-15.0); MCH 32.4 pg (26.0-34.0); MCHC 30.1 g/dL (28.0-37.0); MCV 107.6 fL (80.0-100.0); RBC 2.4 mil/uL (4.20-5.00); RDW 20.9 % (10.5-14.5); WBC 15.8 thou/uL (4.0-11.0)
[2020-05-23 08:41] LABS: CALCIUM 9.5 mg/dL (8.5-10.1); CREATININE 1.2 mg/dL (0.6-1.0); MAGNESIUM 1.7 mg/dL (1.8-2.4); POTASSIUM 4.7 mmol/L (3.5-5.1)
--- NOTE | 2020-05-23 12:45 | NUR ---
Primetime rounding: pt cont on IV ABX and 2L of O2. pt has fever, is confused and lethargic. a chest xray is scheduled for today.
--- NOTE | 2020-05-23 14:36 | NUR ---
ASSUMED PATIENT CARE THIS AM AT APPROXIMATELY 0700. PATIENT IS AWAKE, LETHARGIC. RESPIRATIONS ARE SHALLOW AND SLIGHTLY LABORED. PATIENT ABLE TO BE AROUSED WITH TACTILE STIMULI. VSS WITH LOW GRADE FEVER. PATIENT COUGHING BUT UNABLE TO COUGH UP SPUTUM. SUCTIONED PATIENT PRN. LIGHT MARTINEZ SPUTUM NOTED. PATIENT O2 SAT STABLE ON 2LNC. SPOKE WIH DR. RAE REGARDING PATIENT STATUS THIS AM AND CXR AND LABS ORDERED. AWAITING RESULTS. RANDOM VANCO LEVEL ORDERED TODAY AND RESULTED 22. RESULT CALLED TO DR. RITTER, CHANGES MADE ORDER AND WILL BE GIVEN Q24H. SPOKE WITH PATIENT DAUGHTER FOR UPDATE THIS SHIFT. CONSULT TO DR. LÓPEZ CALLED THIS SHIFT.
[2020-05-23 15:00] VITALS: BP 119/56
[2020-05-23 15:24] VITALS: BP 120/55
[2020-05-23 17:32] LABS: BE(vivo) 3.4 mmol/L (-2 to +3); HCO3 28.6 mmol/L (22.0-26.0); PCO2 47.2 mmHg (35.0-45.0); PO2 74.3 mmHg (80.0-100.0); pH 7.401 (7.360-7.450); sO2 94.8 % (92.0-98.0)
[2020-05-23 19:35] VITALS: BP 141/55
[2020-05-24 03:30] VITALS: BP 150/68
--- NOTE | 2020-05-24 05:41 | NUR ---
PT MAKING POOR PROGRESS TOWARDS GOALS. DAY RN REPORTED FEVER DURING THE DAY TIME. AFEBRILE UNTIL THIS AM WHERE PT WAS 101.3 ORALLY. TYLENOL GIVEN VIA PEG. PT DROWSY BUT WAKEABLE EARLY IN THE NIGHT. OVERNIGHT, MORE LETHARGIC. CONTINUE TO MONITOR.
[2020-05-24 06:16] LABS: HEMOGLOBIN 6.7 gm/dL (12.0-15.0); MCHC 30.5 g/dL (28.0-37.0); WBC 15.7 thou/uL (4.0-11.0)
[2020-05-24 06:19] LABS: HEMATOCRIT 22.1 % (37.0-47.0); MCH 32.5 pg (26.0-34.0); MCV 106.7 fL (80.0-100.0); RBC 2.07 mil/uL (4.20-5.00); RDW 20.7 % (10.5-14.5)
[2020-05-24 06:36] LABS: CALCIUM 9.3 mg/dL (8.5-10.1); CREATININE 1.1 mg/dL (0.6-1.0); MAGNESIUM 1.7 mg/dL (1.8-2.4); POTASSIUM 4.8 mmol/L (3.5-5.1)
[2020-05-24 07:19] VITALS: BP 129/49
[2020-05-24 09:21] LABS: HEMOGLOBIN 6.9 gm/dL (12.0-15.0)
[2020-05-24 09:23] LABS: HEMATOCRIT 22.8 % (37.0-47.0); MCH 32.7 pg (26.0-34.0); MCHC 30.4 g/dL (28.0-37.0); MCV 107.6 fL (80.0-100.0); RBC 2.12 mil/uL (4.20-5.00); RDW 20.9 % (10.5-14.5); WBC 15.5 thou/uL (4.0-11.0)
--- NOTE | 2020-05-24 10:28 | NUR ---
TALKED WITH LINK BARNES. UPDATED ON PT CONDITION AND PLAN OF CARE.
--- NOTE | 2020-05-24 10:38 | NUR ---
TALKED WITH BRONSON, DAUGHTER, ON THE PHOONE MIKAELAING HGB BEING 6.[address] RAE WANT TO GIVE A UNIT OF BLOOD. TALKED BOUT WHY HE HGB COULD BE LOWER. STATES SHE WANTS TO HOLD OFF AND SEE HOW HER LAB WORK LOOKS TOMORROW. WOULD LIKE ME TO TALK WITH THE DR. ALING HER SWELLING AND IF SHE MAY NEED A WATER PILL OR ANYTHING.
--- NOTE | 2020-05-24 10:48 | NUR ---
TALKED WITH DR. RAE. CONVERSTION WITH DAUGHTER GONE OVER.
[2020-05-24 15:30] VITALS: BP 141/87
--- NOTE | 2020-05-24 15:44 | NUR ---
SW reviewed chart and spoke with nursing and attending physician. Pt remains in Enhanced Isolation due to COVID-19. Pt is febrile and on 2L of O2. Pt is on IV abx. Palliative care physician consulted and spoke with pt's dtr. Pt is a DNR. SW spoke with pt's dtr, Rebecca, via phone. Lengthy discussion regarding plan of care. Pt's dtr states they are not ready for comfort care yet. Pt's dtr asking to come visit her mother. SW explained visitor restrictions, as pt remains in Enhanced Isolation and on the Isolation unit. No weekend discharge planned. SW is following to assist as needed with discharge planning.
--- NOTE | 2020-05-24 16:00 | NUR ---
PT FACETIMED WITH DAUGHTER. JUDI UPDATED ON PT CONDITION AND POC.
[2020-05-24 19:15] VITALS: BP 172/62
--- NOTE | 2020-05-25 01:00 | NUR ---
FEEDING TUBE INTACT RESIDUAL CHECKED AT MN WITH UNDER 10 CC'S NOTED.
[2020-05-25 03:39] VITALS: BP 187/81
[2020-05-25 05:56] LABS: HEMATOCRIT 23.3 % (37.0-47.0); HEMOGLOBIN 7.1 gm/dL (12.0-15.0); MCH 32.1 pg (26.0-34.0); MCHC 30.3 g/dL (28.0-37.0); RBC 2.2 mil/uL (4.20-5.00); RDW 20.4 % (10.5-14.5); WBC 14.1 thou/uL (4.0-11.0)
[2020-05-25 06:11] LABS: CALCIUM 9.7 mg/dL (8.5-10.1); MAGNESIUM 1.6 mg/dL (1.8-2.4)
--- NOTE | 2020-05-25 06:43 | NUR ---
PROGRESS PT ALERT AND VERBAL THIS SHIFT DID TALK TO DAUGHTER BRONSON ON THE IPAD AND THEN WAS TALKING TO HERSELF THIS AM. PLEASANT AND COOPERATIVE WITH CARES. BATH GIVEN SKIN MOISTURIZED AND ORAL CARE PROVIDED. PT IS NPO WITH TUBE FEEDING INFUSING EL PEG TUBE AT 60CC/HR, RESIDUAL OF LESS THAN 10 CC'S X2. FLUSHED WITH 240CC TOLERATED WELL INSERTION SITE CLEAN DRY NO DRAINAGE NOTED. BOLIVAR CATHETER WAS LEAKING SO BALLOON DEFLATED AND CATHETER ADVANCED RESOLVED LEAK. FECAL MANAGEMENT SYSTEM IN PLACE DRAINING LIQUID BROWN STOOL. PT HAS 2 IV ONE TO MARVIN WITH IV ANTIBIOTICS INFUSING. DENIES PAIN BUT GAVE TYLENOL FOR COMFORT AND PATIENT SLEPT FOR AWHILE.
[2020-05-25 07:22] VITALS: BP 195/85
[2020-05-25 09:08] VITALS: BP 163/80
[2020-05-25 12:39] VITALS: BP 148/66
[2020-05-25 15:10] VITALS: BP 171/78
--- NOTE | 2020-05-25 18:42 | NUR ---
RN ASSUMED PT'S CARE AT 0700AM, PT IS A&OX1 ( PERSON ), PT CAN FOLLOW SOME COMMANDS, PT IS CONFUSED AT TIME, PT IS CONTINUING IV ABX AND ISOLATION, RN HAS REPORTED TO ID DR ABOUT PT'S FEVER TODAY, PT IS TOLERATIVE TUBE FEEDING AT 60ML/HR, RN HAS UPDATED PT'S INFORMATION TO PT'S FAMILY.
[2020-05-25 20:06] VITALS: BP 151/92
--- NOTE | 2020-05-26 00:14 | NUR ---
PT RESTING IN BED, EYES OPEN PT TALKING TO SELF LOUDLY BUT NONSENSICAL CONVERSATION. 02 PER NC. PEG TUBE WITH TFEEDING INTACT. LUNGS COARSE. BUE AND BLE EDEMA. PT HAS LOOSE COUGH. BED ALARM ON. PTS DAUGHTER CALLED WANTING TO FACE TIME, ASKED BY NURSE TO CALL BACK NOT ABLE TO ASSIST WITH CALL AT THIS TIME.
--- NOTE | 2020-05-26 02:19 | NUR ---
PTS HR 130, BP 180/80 PRN METOPROLOL GIVEN, HR 113 AT THIS TIME.
[2020-05-26 05:12] VITALS: BP 141/73
--- NOTE | 2020-05-26 05:44 | NUR ---
HR ST REMAINING IN THE 130S, PT HAD PRN LOPRESSOR EARLIER IN THE SHIFT. PROVIDER NOTIFIED. OK TO GIVE AM DOSE LOPRESSOR EARLY.
[2020-05-26 06:59] LABS: HEMOGLOBIN 7.3 gm/dL (12.0-15.0); MCH 32.9 pg (26.0-34.0); MCHC 31.7 g/dL (28.0-37.0); RBC 2.21 mil/uL (4.20-5.00); RDW 20.5 % (10.5-14.5); WBC 24.2 thou/uL (4.0-11.0)
[2020-05-26 07:13] LABS: CALCIUM 9.8 mg/dL (8.5-10.1); MAGNESIUM 1.7 mg/dL (1.8-2.4); POTASSIUM 5.2 mmol/L (3.5-5.1)
[2020-05-26 07:35] VITALS: BP 113/56
[2020-05-26 12:45] VITALS: BP 141/78
[2020-05-26 15:39] VITALS: BP 148/84
--- NOTE | 2020-05-26 16:17 | NUR ---
RN ASSUMED PT'S CARE AT 0700 TO 1330PM , PT IS A&OX1 ( PERSON ) , PT CAN FOLLOW SOME COMMANDS, PT IS CONFUSED AT TIME, PT IS CONTINING IV ABX , PT IS ON O2 2L/MIN/NC TO KEEP O2SAT AT 94-96%, RN HAS REPORTED DR ABOUT PT'S FEVER , AND COUGHING , NEW ORDER CHEST X-RAY, PT IS TOLERATIVE TUBE FEEDING AT 60ML/HR.
[2020-05-26 19:33] VITALS: BP 149/69
--- NOTE | 2020-05-26 23:24 | NUR ---
PT RESTING IN BED, ALERT. PT DOES ANSWER STAFFS QUESTIONS. PT IS DROWSY. O2 PER NC. IV ANTIBIOTICS. FMS AND BOLIVAR TO DD. PEG TUBE INTACT. BILATERAL HANDS AND BLE EDEMA. LUNGS WTIH WHEEZES, LOOSE COUGH. STAFF REPOSITIONS PT. BED ALARM ON.
--- NOTE | 2020-05-27 06:31 | NUR ---
THIS AM PT VERY ALERT CHEERFUL TALKATIVE, CLEAR SPEECH GOOD EYE CONTACT.
[2020-05-27 08:31] VITALS: BP 164/81
--- NOTE | 2020-05-27 16:00 | NUR ---
FIDELIA reviewed chart and spoke with nursing and attending physician. Pt remains in Enhanced Isolation due to COVID-19. Pt continued to be febrile and is on IV abx. CT abdomen/pelvis ordered today. WBC elevated. PT/OT ordered to work with pt. FIDELIA spoke with pt's dtr, Rebecca, via phone to provide update. Plan remains for pt to return home with HH and home tube feeding when medically stable. Pt's dtr spoke with attending physician earlier today and was thankful for an update from a physician. FIDELIA is following to assist as needed with discharge planning.
[2020-05-27 16:37] VITALS: BP 149/81
--- NOTE | 2020-05-27 19:33 | NUR ---
RECEIVED PT'S CARE AROUND 0735; PT. ON BED; ST ON THE MONITOR; DURING AM ASSESSMENT ALERT TO PERSON; SLEEP INTERRUPTED; ST. WANTS TO USE THE BATHROOM; REMAINED ABOUT BOLIVAR AND FECAL MANAGEMENT; AM MEDICATIONS GIVEN; RECEIVED CALL FROM DAUGHTERS; PER DAUGHTERS "NO DOCTOR HAS CONTACTED THEM TO LET THEM KNOW WHAT IS GOING ON"; DAUGHTER ST. "I AM THE ONE WHO TAKE CARES OF HER AND I KNOW YOU GUYS ARE SAYING SHE IS GOING TO FROM COVID, BUT ONLY GOD CAN KNOW WHEN SHE WILL GO"; EDUCATED ABOUT DNR STATUS; EDUCATED DNR MEANS IF HEART STOPPED NOT ACTION WILL BE TAKEN, BUT UNTIL THEN EVERY INTERVENTION IS PERFORMED IN ORDER TO MANTAIN PT'S HEALTH; ST. UNDERSTANDING; UPDATED GIVEN ABOUT PT'S HEALTH & POC; REQUESTED TO FACE TIME WITH PT; RETURNED CALL BACK AROUND 1330; NO ANSWER; PHONE NOT SET UP FOR VOICE MAIL; NOT ABLE TO LEAVE VOICE MAIL; BUE US PERFORMED; RESULTS ON THE SYSTEM; PHYSICIAN NOTIFIED; CONSULT ON PLACED FOR ONCOLOGIST; CALL AFTER 1700; NOT ANSWERING SERVICE; PASSED ON REPORT; NOT ABLE TO COLLECT BLOOD SAMPLE DUE TO BUE EDEMA; PHYSICIAN NOTIFIED; OK IF NOT ABLE TO COLLECT SAMPLE ON 05/27/2020; REPORT IT TO LAB; PASSED ON REPORT; ASSESSMENT CHARGED; FOLLOWING POC; PASSED ON REPORT;
[2020-05-27 19:50] VITALS: BP 144/75
[2020-05-28 04:12] VITALS: BP 143/71
[2020-05-28 05:59] LABS: HEMATOCRIT 25.1 % (37.0-47.0); HEMOGLOBIN 7.7 gm/dL (12.0-15.0); MCH 31.5 pg (26.0-34.0); MCHC 30.5 g/dL (28.0-37.0); MCV 103.2 fL (80.0-100.0); RBC 2.43 mil/uL (4.20-5.00); RDW 21.4 % (10.5-14.5)
[2020-05-28 06:12] LABS: CREATININE 0.9 mg/dL (0.6-1.0); MAGNESIUM 1.6 mg/dL (1.8-2.4); POTASSIUM 4.7 mmol/L (3.5-5.1)
[2020-05-28 06:16] LABS: % SATURATION 13 % (20-39); IRON 27 ug/dL (50-170); TIBC 214 ug/dL (250-450)
[2020-05-28 07:49] VITALS: BP 141/66
--- NOTE | 2020-05-28 15:26 | NUR ---
ASSUMED PATIENT CARE THIS AM AT APPROXIMATELY 0700. PATIENT IS AWAKE ALERT, ORIENTED TO PERSON AND PLACE THIS AM. PATIENT RESTING IN BED, EASILY AROUSABLE. BOLIVAR AND FECAL MANAGEMENT SYSTEM IN PLACE, PATIENT TURNED AND REPOSITIONED Q2H THIS SHIFT. HEELS OFFLOADED. APPLIED BARRIER CREAM TO EXCORIATION NOTED BETWEEN LEGS AND PERIRECTAL AREA. SPOKE WITH PATIENT DAUGHTER REGARDING PLAN OF CARE AND DR. RAE CALLED DAUGHTER TO MAKE AWARE OF CURRENT PLAN TODAY. FAMILY ABLE TO SPEAK WITH PATIENT ON VIDEO CALL TODAY DR. RAE CALLED UNIT TO MAKE NURSE AWARE THAT PLAN FOR IVC FILTER IS DELAYED BECAUSE HE WOULD LIKE TO TRY ANTICOAGULATION FIRST. STARTED ON LOVENOX THIS SHIFT.
[2020-05-28 15:42] VITALS: BP 142/64
--- NOTE | 2020-05-28 16:13 | NUR ---
SW reviewed chart and spoke with nursing and attending physician. Pt remains in Enhanced Isolation due to COVID-10. Pt is febrile and on 3L of O2. Pt is on IV abx. Cardiology and Hem/Onc consulted. Pt to be started on anticoagulation with Lovenox. Hemoglobin to be monitored. Pt may need IVC filter. Plan is for pt to discharge home with when medically stable. FIDELIA is following to assist as needed with discharge planning.
--- NOTE | 2020-05-28 18:15 | NUR ---
TO UNIT BY BED FROM 354, REPORT FROM SAMY DEMARCO. ST PER TELE. TUBE FEEDING, BOLIVAR, AND RECTAL TUBE INTACT. SHE IS RESPONSIVE BUT HER SPEECH IS UNCLEAR. ST PER TELE. WILL CONTINUE TO MONITOR.
[2020-05-28 18:25] VITALS: BP 146/79
[2020-05-28 20:05] VITALS: BP 135/67
[2020-05-29 04:00] VITALS: BP 140/59
--- NOTE | 2020-05-29 04:42 | NUR ---
PT IS DROWSY AND CONFUSED. PT HAS A BOLIVAR AND A FECAL MANAGEMENT SYSTEM FOR CARE. TURN Q2 HOURS. BARRIER CREAM TO COCCYX AREA. HANDS ARE SWOLLEN 3 PLUS PROPED UP WITH PILLOWS. SCDS ON BILATERAL.LUNGS ARE COARSE TO DIMINISHED. ON 2 LITERS NASAL CANULA. SINUS TACH ON THE WOOD HANDLER. TOLERATING PEG FEEDINGS NO RESIDUAL AT GOAL. WILL CONINTUE TO ASSESS AND MONITOR PER NURSING.
[2020-05-29 05:38] LABS: HEMATOCRIT 23.2 % (37.0-47.0); HEMOGLOBIN 7.2 gm/dL (12.0-15.0); MCH 31.8 pg (26.0-34.0); MCHC 31.1 g/dL (28.0-37.0); MCV 102.4 fL (80.0-100.0); RBC 2.26 mil/uL (4.20-5.00); RDW 21.3 % (10.5-14.5); WBC 10.8 thou/uL (4.0-11.0)
[2020-05-29 05:47] LABS: CALCIUM 10.1 mg/dL (8.5-10.1); CREATININE 0.9 mg/dL (0.6-1.0); MAGNESIUM 1.7 mg/dL (1.8-2.4); POTASSIUM 4.7 mmol/L (3.5-5.1)
[2020-05-29 09:00] VITALS: BP 180/88
[2020-05-29 12:47] VITALS: BP 148/77
--- NOTE | 2020-05-29 16:25 | NUR ---
FAXED CLINICAL UPDATE TO [facility] SPOKE WITH [facility] IN INTAKE THEY NEED A COVID TEST DONE TO SEE IF PT IS STILL COVID POSITIVE THEY ARE LIMITED ON PPE. SPOKE WITH FIDELIA PARRA) AND SHE WILL HAVE PHYSICIAN ORDER TEST.
--- NOTE | 2020-05-29 16:59 | NUR ---
[facility] plan for dc tomorrow. DC raw material planner to update [facility] and [facility] for tube feedings. Sp with [facility] to alert of dc tomorrow.
[2020-05-29 22:00] VITALS: BP 144/63
[2020-05-30 05:52] LABS: HEMATOCRIT 23.1 % (37.0-47.0); HEMOGLOBIN 7.1 gm/dL (12.0-15.0); MCH 31.7 pg (26.0-34.0); MCHC 30.8 g/dL (28.0-37.0); MCV 103.2 fL (80.0-100.0); RBC 2.24 mil/uL (4.20-5.00); RDW 21.9 % (10.5-14.5); WBC 11.7 thou/uL (4.0-11.0)
[2020-05-30 06:06] LABS: MAGNESIUM 1.5 mg/dL (1.8-2.4); POTASSIUM 4.6 mmol/L (3.5-5.1)
--- NOTE | 2020-05-30 07:48 | NUR ---
ASSUME CARE 1900. PT A/O X 4. ANSWERS QUESTIONS APPROPRIATELY. DENIES ANY PAIN. POOR ACTIVITY TOLERANCE. LEFT SIDE PARALYSIS. ASSESSMENT CHARTED. MODERATE PROGRESS TO POC. SR ON MONITOR WITH CONTROLLED RATE. PLAN IS TO CONTINUE TO DIURESE/ANTICOAGULATE/AND TREAT WITH ABX THERAPY. PLAN ALSO FOR IVC FILTER PLACEMENT IN FUTURE. WILL CONTINUE TO MONITOR AND FOLLOW WITH POC
[2020-05-30 08:02] VITALS: BP 123/55
[2020-05-30 11:59] VITALS: BP 127/63
--- NOTE | 2020-05-30 13:07 | NUR ---
Pt with low hgb today. Fecal mngt system still in place and will need dc'd. Will need to wean off o2 or have exer ox/room air sats to arrange for setup at home. Plan remains to dc to home with family in 1-2 days with HH per [facility] and enteral formula/supplies per [facility]. The [facility] liason Shante indicates the family has her supplies/pump and had instruction a couple of weeks ago. They will just need updated orders at dc. [facility] will need a neg covid test to provide service. Covid test pending today. Case discussed with the care team. Will offer non emgerent [facility] transport for pt at dc as she is bedbound, total care at this time.
[2020-05-30 17:17] VITALS: BP 141/71
--- NOTE | 2020-05-30 19:47 | NUR ---
ASSUMED CARE AT CHANGE OF SHIFT. ALERTX4, DENIES SOB. PRN 2L NASAL CANNULA. 02SATS ON RA 93%. TURNS TOLERATE. TOLERATONG PEG TUBE FEEDING WITH FLUSHES. WOUND RN CONSULTED FOR BILATERAL FOOT/TOES. BARRIER CREAM TO JOHNSON AND BUTTOCKS FOR REDNESS AND RASH.MAX ASSIST FOR TURNS. STAFF TO ANTICIPTE NEEDS. PT UNABLE TO DEMOSTRATE CALL LIGHT.
[2020-05-30 20:15] VITALS: BP 132/62
[2020-05-31] VITALS (8 sets, daily range): BP systolic 131–158; BP diastolic 67–81
[2020-05-31 04:13] LABS: CALCIUM 9.6 mg/dL (8.5-10.1); CREATININE 0.9 mg/dL (0.6-1.0); MAGNESIUM 1.5 mg/dL (1.8-2.4)
[2020-05-31 06:09] LABS: HEMATOCRIT 25.1 % (37.0-47.0); HEMOGLOBIN 7.7 gm/dL (12.0-15.0); MCH 31.5 pg (26.0-34.0); MCHC 30.8 g/dL (28.0-37.0); MCV 102.3 fL (80.0-100.0); RBC 2.45 mil/uL (4.20-5.00); RDW 22.5 % (10.5-14.5); WBC 10.8 thou/uL (4.0-11.0)
--- NOTE | 2020-05-31 06:57 | NUR ---
SLEPT MOST OF SHIFT. NO PRESENT COMPLAINTS AT THIS TIME. REMAINS ORIENTED X4 BUT FORGETFUL AT TIMES WHEN AWAKENED. TURNED EVERY 2-3 HOURS FOR COMFORT AND SKIN CARE. SPOKE WITH DAUGHTER BRONSON AT 2225 LAST NOC FOR 5 MINUTES. WOUND CARE TO COME ASSES DISCOLORED TOES ON BILATERAL FEET. WORKING ON GOALS AND PLAN OF CARE FOR NOC. NOT IN ISOLATION AT THIS TIME PER ORDERS. CONTINUE TO ASSES CLOSELY.
[2020-05-31] MEDS ORDERED: PROVENTIL HFA6.7 G1 INH (14:02)
[2020-05-31] MEDS ORDERED: FERROUS SU220 MG/52 PER TUBE (14:02)
[2020-05-31] MEDS ORDERED: VITAMINC500 PO (14:02)
[2020-05-31] MEDS ORDERED: FOLIC ACID1 MG PER TUBE (14:02)
[2020-05-31] MEDS ORDERED: LIDOPATCH1 EACH TRANSDERM (14:02)
[2020-05-31] MEDS ORDERED: LOPRESSOR50 PO (14:06)
[2020-05-31] MEDS ORDERED: PREDNISONE 5 MG5 M1 PO (14:15)
[2020-05-31] MEDS ORDERED: PROBIOTIC1 EAC4 PO (14:15)
[2020-05-31] MEDS ORDERED: NOVOLOG100 UNIT/1 SUBQ (14:15)
[2020-05-31] MEDS ORDERED: ACETAMINOP160 MG/54 PO (14:15)
[2020-05-31] MEDS ORDERED: ELIQUIS5 MG PO (14:21)
[2020-05-31] MEDS ORDERED: ZINC SULFATE 2220 MG PO (14:26)
--- NOTE | 2020-05-31 15:29 | NUR ---
08:00-PT IS PLEASANT OVERALL, STATES SHE HAD SOME SLIGHT NAUSEA AND HER BOTTOM WAS HURTING HER, TURNED HER TO OTHER SIDE AND PUT A WEDGE UNDER HER RIGHT BUTTOCKS AREA FOR PRESSURE RELIEF. MEDICATIONS GIVEN. TUBE FEEDINGS ARE AT 60ML/HE AND RECIEVES WATER FLUSHES OF 150ML WELL, TUBE IS PATENT NO ISSUES. FECAL BAG APPEARS TO BE DRAINIGN WELL, NO ISSUES AND IN PLACE AND INTACT UPON MOVING HER.
--- NOTE | 2020-05-31 15:31 | NUR ---
10:30 DISCHARGE ORDERS ARE PENDING, WILL DISCUSS PLAN WITH SOCIAL WORK TEAM TODAY FOR SUCH. PT. MOVED TO HER LEFT SIDE NOW WITH WEDGE ON LEFT BUTTOCKS FOR PRESSURE RELIEF. TUBE FEEDINGS TOLDERATED, NO RESIDUALS MEASURED WHEN CHECKED. DENIES ANY PAIN AND NOW ON ROOM AIR WITH SATURATIONS 95%.
--- NOTE | 2020-05-31 16:14 | NUR ---
Pt dcing home today via [facility] at 7:30pm. DC arrangements reviewed with dtr Michele and she is agreeable. Home o2 has been arranged thru [facility] along with the pt's enteral formula and supplies. [facility] is providing the pt's homemaker/personal care services through [place] medicaid however they can not do the RN visits. Hh referral faxed to [facility] per the dc transportation planner and they can accept. They are aware of pt is still testing positive for covid but is beyond her 21 day quarentine. DC transportation planner to fax the dc summary and instructions to [facility]. A portable o2 tank is in the room and pt's dtr will be here shortly to pick it up as well as to reveiw the pt's dc med list and instructions with nursing. Care team updated.
[2020-06-04] MEDS ORDERED: NOVOLOG100 UNIT/1 SUBQ (10:50)
== END 2020-05-31 18:35 | disposition home health service (06) | DRG 177 ==
LOC: ER 18:30 → 3W 20:53 → EROBS 20:53 → 3W 04-30 01:30 → ICU 05-09 14:52 → 3W 05-15 06:17 → 2N 05-28 17:56
PROVIDERS: Hospitalist; Internal Medicine; Internal Medicine Pulmonary Disease; Nurse Practitioner; Nurse Practitioner Family; Pediatrics; Physician Assistant; Specialist; ADMIT Hospitalist; ATTEND Hospitalist
PROC: 0DH68UZ Insertion of Feeding Device into Stomach, Via Natural or Artificial Opening Endoscopic (ICD-10-PCS; principal; 2020-05-14)
DX: U07.1 COVID-19 (principal); J96.01 Acute respiratory failure with hypoxia; J12.89 Other viral pneumonia; J96.02 Acute respiratory failure with hypercapnia; G92 Toxic encephalopathy; J69.0 Pneumonitis due to inhalation of food and vomit; I26.99 Other pulmonary embolism without acute cor pulmonale; E43 Unspecified severe protein-calorie malnutrition; N17.9 Acute kidney failure, unspecified; E87.0 Hyperosmolality and hypernatremia; K52.1 Toxic gastroenteritis and colitis; M31.9 Necrotizing vasculopathy, unspecified; I69.354 Hemiplegia and hemiparesis following cerebral infarction affecting left non-dominant side; I13.0 Hypertensive heart and chronic kidney disease with heart failure and stage 1 through stage 4 chronic kidney disease, or unspecified chronic kidney disease; M06.9 Rheumatoid arthritis, unspecified; E78.00 Pure hypercholesterolemia, unspecified; E11.42 Type 2 diabetes mellitus with diabetic polyneuropathy; I50.9 Heart failure, unspecified; K21.9 Gastro-esophageal reflux disease without esophagitis; E78.5 Hyperlipidemia, unspecified; N18.9 Chronic kidney disease, unspecified; E11.22 Type 2 diabetes mellitus with diabetic chronic kidney disease; E66.9 Obesity, unspecified; R13.10 Dysphagia, unspecified; D53.9 Nutritional anemia, unspecified; T36.95XA Adverse effect of unspecified systemic antibiotic, initial encounter; D50.9 Iron deficiency anemia, unspecified; E53.8 Deficiency of other specified B group vitamins; E83.42 Hypomagnesemia; E87.6 Hypokalemia; M10.9 Gout, unspecified; R15.9 Full incontinence of feces; R32 Unspecified urinary incontinence; Z71.6 Tobacco abuse counseling; Z90.49 Acquired absence of other specified parts of digestive tract; Z87.891 Personal history of nicotine dependence; Z68.27 Body mass index [BMI] 27.0-27.9, adult; Z79.82 Long term (current) use of aspirin; Z79.899 Other long term (current) drug therapy; Y92.89 Other specified places as the place of occurrence of the external cause; Z23 Encounter for immunization
CPT/HCPCS: 10078; 10081; 10203; 10204; 10779; 10879; 62110; 62900